=== PATIENT | male | born 1960 | race Two or more races ===

== ENCOUNTER 2022-12-19 08:48 | Outpatient (REF) | payer MEDICAID, SELFPAY ==
[2022-12-19 09:16] LABS: MANUAL DIFF FLAG NO
[2022-12-19 10:10] LABS: Basophils Percent Auto 0.2 % (0-2); Eosinophils Absolute Auto 0.2 X10*3/uL (0.0-0.4); Eosinophils Percent Auto 5.4 % (0-4); Hematocrit 39.1 % (42.0-52.0); Hemoglobin 12.2 g/dl (14.0-18.0); Imm Gran Abs Auto 0.02 X10*3/uL (0.00-0.03); Imm Gran Pct Auto 0.5 % (0.0-0.4); Lymphocytes Absolute Auto 0.5 X10*3/uL (1.2-4.9); Lymphocytes Percent Auto 11.1 % (20-40); Mean Corpuscular HGB Conc 31.2 g/dl (31.0-36.0); Mean Corpuscular Hemoglobin 26.2 pg (27.0-33.0); Mean Corpuscular Volume 83.9 fL (80.0-98.0); Mean Platelet Volume 11.7 fL (9.4-12.4); Monocytes Absolute Auto 0.4 X10*3/uL (0.1-1.2); Monocytes Percent Auto 9.6 % (2-11); Neutrophils Percent Auto 73.2 % (45-73); Platelet Count 117 X10*3/uL (160-400); Red Blood Count 4.66 X10*6/uL (4.60-5.80); Red Cell Distribution Width 14.4 % (11.0-16.0); White Blood Count 4.1 X10*3/uL (4.8-10.8)
[2022-12-19 10:53] LABS: Alanine Aminotransferase 30 U/L (0-40); Aspartate Amino Transferase 40 U/L (5-37); Estimated Glomerular Filt Rate > 60
[2022-12-19 11:48] LABS: CT PCR NOT DETECTED (Not Detect.); NG PCR NOT DETECTED (Not Detect.)
[2022-12-20 06:34] LABS: Syphilis Screen Nonreactive (Nonreactive)
[2022-12-20 14:18] LABS: HIV RNA PCR Qn Copies 1800000 copies/mL (NOT DETECTED); HIV RNA PCR Qn Log Copies 6.26 (NOT DETECTED)
== END 2022-12-19 08:49 | disposition home or self-care (01) ==
LOC: HO.LAB 08:48
PROVIDERS: Visit Provider Internal Medicine Infectious Disease
DX: B20 Human immunodeficiency virus [HIV] disease (principal)
CPT/HCPCS: 0353U; 82565; 84450; 84460; 85025; 86160; 86780; 87536

== ENCOUNTER 2023-02-25 11:10 | Emergency (ER) | payer MEDICAID, SELFPAY ==
--- NOTE | ~2023-02-25 | XR_ITS ---
EXAMINATION: XR chest 2V CLINICAL INFORMATION: Reason for Exam rash, h/o hiv, weakness COMPARISON: No prior chest x-ray available in our system for comparison at the time of this dictation. TECHNIQUE: XR chest 2V Lungs and Christy: Both lungs are clear. Pleura: Normal. Costophrenic angles are sharp. No pneumothorax. Heart: The heart is normal in size. Mediastinum: The mediastinum is within normal limits.. Bones: Skeletal structures included are normal for patient's age. XR/XR chest 2V IMPRESSION: No radiographic evidence of acute cardiopulmonary disease.
[2023-02-25 11:47] VITALS: BP 135/80; PULSE 70; RESP 18; TEMP 36.7; O2SAT 98; BMI 23.8
--- NOTE | 2023-02-25 11:50 | ED_ITS ---
HPI - General Adult General Chief complaint: Urogenital-Male <NED Naik - Last Filed: 02/27/23 07:34> Stated complaint: infection <NED Naik - Last Filed: 02/27/23 07:34> Time Seen by Provider: 02/25/23 14:58 <NED Naik - Last Filed: 02/27/23 07:34> Source: patient <Sheryl Hill NP - Last Filed: 02/25/23 18:47> Mode of arrival: ambulatory <Sheryl Hill NP - Last Filed: 02/25/23 18:47> Limitations: no limitations <Sheryl Hill NP - Last Filed: 02/25/23 18:47> History of Present Illness HPI narrative: 62yo male with a history HIV who has not taken antiviral medication in greater than 8 years who presents to the ER with complaints of itching rash for the last 1 week noted over his entire body. Patient reports for the last 3 weeks he has had decreased oral intake and a 30 lb weight loss. Patient reports he feels weak and tired. He did speak to his infectious disease doctor (brenden) and was prescribed Bactrim on February 05 which he has been taking. He is unsure why he is taking this medication. Patient denies any associated chest pain, difficulty breathing, cough, vomiting, diarrhea, abdominal pain, urinary symptoms, headache, neck pain or neck stiffness. Patient reports he was diagnosed with HIV years ago which was thought to be secondary to IV drug abuse. He is not currently using any IV drugs. He tells me he stopped taking the medication 8 years ago because he was healed by God. He denies any new sexual partners. <Sheryl Hill NP - Last Filed: 02/25/23 18:47> Related Data Home medications: Previous Rx's Medication Instructions Recorded clotrimazole 1 % topical cream 1 appl topical BID 4 weeks #90 02/25/23 grams diphenhydramine HCl 25 mg tablet 25 mg PO TID PRN itching #60 tabs 02/25/23 (Benadryl Allergy) fluconazole 200 mg tablet 200 mg PO DAILY #14 tabs 02/25/23 <NED Naik - Last Filed: 02/27/23 07:34> Allergies/adverse reactions: Allergies Allergy/AdvReac Type Severity Reaction Status Date / Time No Known Allergies Allergy Verified 02/25/23 11:46 <NED Naik - Last Filed: 02/27/23 07:34> Review of Systems Review of Systems: Yes all other systems are reviewed and are negative <Sheryl Hill NP - Last Filed: 02/25/23 18:47> Constitutional: Constitutional: Reports no additional constitutional complaints, Denies body ache(s), Denies chills, Reports fatigue, Denies fever(s), Denies headache(s), Reports weakness and Reports weight loss <Sheryl Hill NP - Last Filed: 02/25/23 18:47> Eyes: Eyes: Reports no additional eye complaints and Denies change in vision <Sheryl Hill NP - Last Filed: 02/25/23 18:47> ENT: Reports system reviewed and no additional complaints, except as documen angela, Denies dizziness, Denies headache(s), Denies nasal congestion, Denies nasal discharge and Denies neck pain <Sheryl Hill NP - Last Filed: 02/25/23 18:47> Cardiovascular: Cardiovascular: Reports no additional cardiovascular complaints, Denies chest pain, Denies leg edema and Denies dyspnea <Sheryl Hill [employer]CHO[employer] PHOTOGRAPH EDITOR - Last Filed: 02/25/23 18:47> Respiratory: Respiratory: Reports no additional respiratory complaints, Denies cough and Denies dyspnea <Sheryl Hill NP - Last Filed: 02/25/23 18:47> Gastrointestinal: Gastrointestinal: Reports no additional gastrointestinal complaints, Denies abdominal pain, Denies diarrhea, Denies nausea and Denies vomiting <Sheryl Hill SCHO[employer] PHOTOGRAPH EDITOR - Last Filed: 02/25/23 18:47> Genitourinary: Genitourinary: Denies urinary incontinence <Sheryl Hill SCHO[employer] PHOTOGRAPH EDITOR - Last Filed: 02/25/23 18:47> Musculoskeletal: Musculoskeletal: Reports no additional musculoskeletal complaints, Denies back pain, Denies arthralgias, Denies joint swelling, Denies neck pain, Denies numbness and Denies tingling <Sheryl Hill NP - Last Filed: 02/25/23 18:47> Integumentary/Breasts: Skin/Breast: Reports system reviewed and no additional complaints, except as docu and Reports rash <Sheryl Hill NP - Last Filed: 02/25/23 18:47> Neurologic: Reports system reviewed and no additional complaints, except as documented, Denies dizziness, Denies headache(s), Denies numbness, Denies tingling and Reports weakness <Sheryl Hill NP - Last Filed: 02/25/23 18:47> Endocrine: Endocrine: Reports fatigue <Sheryl Hill NP - Last Filed: 02/25/23 18:47> FOR[facility]LY [facility] Past Medical History Attestation statement: The following information was validated with the patient. <Sheryl Hill NP - Last Filed: 02/25/23 18:47> Source: old records reviewed and nursing notes reviewed <Sheryl Hill NP - Last Filed: 02/25/23 18:47> Social History Social History: Social History Advance Directives: No Advance Directives Information Provided: Yes <NED Naik - Last Filed: 02/27/23 07:34> Physical Exam ED Vital Signs: Vital Signs - 24 hr 02/25/23 11:47 02/25/23 16:40 Temperature 98.1 F 98.3 F Pulse Rate 70 64 Respiratory Rate 18 20 Blood Pressure 135/80 112/70 Pulse Oximetry 98 98 Oxygen Delivery Method Room Air Room Air BMI result Body Mass Index 23.8 <NED Naik - Last Filed: 02/27/23 07:34> Vital Signs - 24 hr 02/25/23 11:47 02/25/23 16:40 Temperature 98.1 F 98.3 F Pulse Rate 70 64 Respiratory Rate 18 20 Blood Pressure 135/80 112/70 Pulse Oximetry 98 98 Oxygen Delivery Method Room Air Room Air BMI result Body Mass Index 23.8 <Sheryl Hill NP - Last Filed: 02/25/23 18:47> Const Other: Thin-appearing <Sheryl Hill NP - Last Filed: 02/25/23 18:47> General: alert <Sheryl Hill SCHO[employer] PHOTOGRAPH EDITOR - Last Filed: 02/25/23 18:47> Orientation/consciousness: patient oriented x3 <Sheryl Hill SCHO[employer] PHOTOGRAPH EDITOR - Last Filed: 02/25/23 18:47> Limitations: no limitations <Sheryl Hill, SCHOOL PHOTOGRAPH EDITOR - Last Filed: 02/25/23 18:47> HENMT Head: Yes normal to inspection <Sheryl Hill, SCHOOL PHOTOGRAPH EDITOR - Last Filed: 02/25/23 18:47> Ears: hearing grossly normal bilaterally <Sheryl Hill, SCHOOL PHOTOGRAPH EDITOR - Last Filed: 02/25/23 18:47> Eyes General: appearance normal, both eyes and all related structures <Sheryl Hill, SCHOOL PHOTOGRAPH EDITOR - Last Filed: 02/25/23 18:47> Pupils: Equal, round and reactive pupils present <Sheryl Hill SCHO[employer] PHOTOGRAPH EDITOR - Last Filed: 02/25/23 18:47> Neck Neck: Yes normal visual inspection, Yes full ROM, Yes no lymphadenopathy and Yes no meningeal signs <Sheryl Hill, SCHOOL PHOTOGRAPH EDITOR - Last Filed: 02/25/23 18:47> Chest Chest palpation & inspection: normal inspection of the chest <Sheryl Hill SCHO[employer] PHOTOGRAPH EDITOR - Last Filed: 02/25/23 18:47> Resp Effort & Inspection: normal respiratory effort <Sheryl Hill SCHO[employer] PHOTOGRAPH EDITOR - Last Filed: 02/25/23 18:47> Auscultation: clear to auscultation bilaterally <Sheryl Hill SCHOOL PHOTOGRAPH EDITOR - Last Filed: 02/25/23 18:47> Cardio Rate: regular rate <Sheryl Hill SCHOOL PHOTOGRAPH EDITOR - Last Filed: 02/25/23 18:47> Rhythm: regular rhythm <Sheryl Hill SCHOOL PHOTOGRAPH EDITOR - Last Filed: 02/25/23 18:47> Peripheral pulses: Peripheral pulses 2+ throughout <Sheryl Hill SCHO[employer] PHOTOGRAPH EDITOR - Last Filed: 02/25/23 18:47> GI Inspection: Yes normal to inspection <Sheryl Hill SCHO[employer] PHOTOGRAPH EDITOR - Last Filed: 02/25/23 18:47> Palpation (GI): Soft to palpation and nontender <Sheryl Hill NP - Last Filed: 02/25/23 18:47> General: Yes no CVA tenderness <Sheryl Hill NP - Last Filed: 02/25/23 18:47> Back/Spine/Pelvis Back: no CVA tenderness <Sheryl Hill SCHO[employer] PHOTOGRAPH EDITOR - Last Filed: 02/25/23 18:47> Thoracic/Lumbar Spine: thoracic and lumbar spine normal to inspection <Sheryl Hill NP - Last Filed: 02/25/23 18:47> Skin Other: Over the trunk, lower legs, upper arms, genital area there are patch like lesions with a red rim around the circumference. There are areas of excoriation . The hands and feet are spared. There are no oral lesions <Sheryl Hill NP - Last Filed: 02/25/23 18:47> Neuro General: patient oriented x3, moves all extremities and no meningeal signs <Sheryl Hill NP - Last Filed: 02/25/23 18:47> Cranial nerves: Yes Equal, round and reactive pupils present <Sheryl Hill NP - Last Filed: 02/25/23 18:47> Cognition (Neuro): normal cognition <Sheryl Hill NP - Last Filed: 02/25/23 18:47> Gait exam (Neuro): Normal gait present <Sheryl Hill NP - Last Filed: 02/25/23 18:47> Extrem General: Yes normal to inspection, Yes no pedal edema and Yes no calf tenderness <Sheryl Hill NP - Last Filed: 02/25/23 18:47> Course Course Course Narrative: RME: 62 yold male presents to the ED for penile rash, penile discharge, and weight loss. Patient is well appearing. UA, CTNG ordered <NED Naik - Last Filed: 02/27/23 07:34> Reevaluation(s) Reevaluation #1: Reviewed labs which show leukopenia, thrombocytopenia, lymphocytopenia which appears mildly decreased from patient's baseline. Hemoglobin and hematocrit are stable. Patient sodium is 146 and BUN is 33 which is consistent with mild dehydration. He has normal creatinine. His chest x-ray shows no signs of infection. His urine is negative for infection. His COVID and flu testing are negative. Patient received 1 L of IV fluids. -patient with significant weight loss, history of HIV, not on any antivirals with poor CD4 counts in the past now with fungal appearing rash over the last few weeks. Will need further w/u outpatient. I did explain to the patient that I am quite concerned for his current physical state and he does not follow up closely with his Infectious Disease he may become much sicker and . Thankfully he does have an infectious disease doctor any tells me he will call her tomorrow to follow-up. I did discuss this patient with my attending physician Dr. Llanos. We will start the patient on oral fluconazole and give a 2 week supply with recommendations for close follow-up outpatient with Infecti ous Disease. Patient agreeable with plan of care. Recommended return for any worsening signs or symptoms. Patient is comfortable with this. <Sheryl Hill NP - Last Filed: 02/25/23 18:47> Medications Administered Discontinued Medications Generic Name Dose Route Start Last Admin Trade Name Freq PRN Reason Stop Dose Admin Diphenhydramine HCl 12.5 mg 02/25/23 17:29 02/25/23 18:14 Diphenhydramine Hcl 50 Mg/Ml Vial IVPUSH 02/25/23 17:30 12.5 mg ONCE ONE Administration Sodium Chloride 1,000 mls @ 999 mls/hr 02/25/23 16:40 02/25/23 17:01 Ns IV 02/25/23 17:40 999 mls/hr .Q1H1M STA Administration <NED Naik - Last Filed: 02/27/23 07:34> Medications Administered Discontinued Medications Generic Name Dose Route Start Last Admin Trade Name Freq PRN Reason Stop Dose Admin Diphenhydramine HCl 12.5 mg 02/25/23 17:29 02/25/23 18:14 Diphenhydramine Hcl 50 Mg/Ml Vial IVPUSH 02/25/23 17:30 12.5 mg ONCE ONE Administration Sodium Chloride 1,000 mls @ 999 mls/hr 02/25/23 16:40 02/25/23 17:01 Ns IV 02/25/23 17:40 999 mls/hr .Q1H1M STA Administration <Sheryl Hill NP - Last Filed: 02/25/23 18:47> Medical Decision Making Medical Decision Making [facility] Narrative: This is a 62-year-old male with a history of HIV who stopped taking antiviral medications many years ago who presents to the ER with complaints of weakness, poor p.o. intake, 30 lb weight loss in 3 weeks now with an itching diffuse body rash for the last 1 week. Of note, patient was started on Bactrim for unknown reason on February 05. Vitals are stable. Besides rash there is no focal finding on exam. Will obtain labs, chest x-ray, EKG -I did review the patient's labs in his CD4 count from 2019 is 41 <Sheryl Hill NP - Last Filed: 02/25/23 18:47> Differential Diagnosis Differential Diagnoses: The differential diagnosis associated with the presentation includes <Sheryl Hill NP - Last Filed: 02/25/23 18:47> Skin rash not consistent with Martins-Lukasz syndrome or it TEN Low concern for tick-borne illness Low concern for cellulitis appears to be fungal <Sheryl Hill NP - Last Filed: 02/25/23 18:47> Lab Data [facility] Lab Attestation statement: I reviewed the patient's lab results. <Sheryl Hill NP - Last Filed: 02/25/23 18:47> Result Diagrams: 02/25/23 16:04 02/25/23 16:04 <NED Naik - Last Filed: 02/27/23 07:34> Labs: Lab Results 02/25/23 02/25/23 02/25/23 Range/Units 12:21 12:21 16:03 WBC (4.8-10.8) X10*3/uL RBC (4.60-5.80) X10*6/uL Hgb (14.0-18.0) g/dl Hct (42.0-52.0) % MCV (80.0-98.0) fL MCH (27.0-33.0) pg MCHC (31.0-36.0) g/dl RDW (11.0-16.0) % Plt Count (160-400) X10*3/uL MPV (9.4-12.4) fL Immature Gran % (Auto) (0.0-0.4) % Neut % (Auto) (45-73) % Lymph % (Auto) (20-40) % Dixon % (Auto) (2-11) % Eos % (Auto) (0-4) % Baso % (Auto) (0-2) % Lymph # (Auto) (1.2-4.9) X10*3/uL Dixon # (Auto) (0.1-1.2) X10*3/uL Eos # (Auto) (0.0-0.4) X10*3/uL Baso # (Auto) (0.0-0.2) X10*3/uL Abs Immat Gran (auto) (0.00-0.03) X10*3/uL Absolute Neuts (auto) (2.0-8.3) x10*3/uL Absolute Nucleated RBC (0.0-0.012) X10*3/uL Nucleated RBC % (auto) (0.0-0.2) /100WBC PT (10.0-13.1) SEC INR (0.9-1.1) Sodium (135-145) mmol/L Potassium (3.3-5.1) mmol/L Chloride (96-108) mmol/L Carbon Dioxide (22-29) mmol/L Anion Gap (12-20) BUN (9-16) mg/dL Creatinine (0.5-1.4) mg/dL Estim Creat Clear Calc Estimated GFR Random Glucose (60-115) mg/dL Lactic Acid (0.5-2.0) mmol/L Calcium (8.4-10.2) mg/dL Magnesium (1.6-2.6) mg/dL Total Bilirubin (0.0-1.0) mg/dL Direct Bilirubin (0.0-0.5) mg/dL AST (5-37) U/L ALT (0-40) U/L Alkaline Phosphatase (39-117) U/L Total Creatine Kinase (38-174) U/L Total Protein (6.5-8.0) g/dL Albumin (3.5-5.0) g/dL Lipase (8-78) U/L Urine Color Dark Yellow Urine Appearance Clear Urine pH 6.0 (5.0-9.0) Ur Specific [place] >= 1.030 H (1.005-1.025) Urine Protein 30 (1+) H (Neg-Trace) mg/dL Urine Glucose (UA) Negative (Negative) mg/dL Urine Ketones Trace (Negative) mg/dL Urine Blood Negative (Negative) Urine Nitrite Negative (Negative) Ur Leukocyte Esterase Trace H (Negative) Urine RBC 0-2 (0-2) /HPF Urine WBC 0-5 (0-5) /HPF Ur Squamous Epith Cells 0-2 (0-2) /HPF Urine Bacteria None Seen (None Seen) Hyaline Casts 0-2 (0-2) /LPF T.pallidum Ab (EIA) Nonreactive (Nonreactive) Chlam trachomat DNA PCR NOT DETECTED (Not Detect.) Influenza Type A (PCR) (Negative) Influenza Type B (PCR) (Negative) N.gonorrhoeae DNA (PCR) NOT DETECTED (Not Detect.) RSV RNA Qual (PCR) (Negative) SARS-CoV-2 RNA (RT-PCR) (Negative) 02/25/23 02/25/23 02/25/23 Range/Units 16:03 16:04 16:04 WBC 3.2 L (4.8-10.8) X10*3/uL RBC 5.01 (4.60-5.80) X10*6/uL Hgb 13.4 L (14.0-18.0) g/dl Hct 42.3 (42.0-52.0) % MCV 84.4 (80.0-98.0) fL MCH 26.7 L (27.0-33.0) pg MCHC 31.7 (31.0-36.0) g/dl RDW 14.8 (11.0-16.0) % Plt Count 118 L (160-400) X10*3/uL MPV 12.2 (9.4-12.4) fL Immature Gran % (Auto) 0.0 (0.0-0.4) % Neut % (Auto) 58.3 (45-73) % Lymph % (Auto) 19.6 L (20-40) % Dixon % (Auto) 13.4 H (2-11) % Eos % (Auto) 8.4 H (0-4) % Baso % (Auto) 0.3 (0-2) % Lymph # (Auto) 0.6 L (1.2-4.9) X10*3/uL Dixon # (Auto) 0.4 (0.1-1.2) X10*3/uL Eos # (Auto) 0.3 (0.0-0.4) X10*3/uL Baso # (Auto) 0.0 (0.0-0.2) X10*3/uL Abs Immat Gran (auto) 0.00 (0.00-0.03) X10*3/uL Absolute Neuts (auto) 1.9 L (2.0-8.3) x10*3/uL Absolute Nucleated RBC 0.000 (0.0-0.012) X10*3/uL Nucleated RBC % (auto) 0.0 (0.0-0.2) /100WBC PT 11.5 (10.0-13.1) SEC INR 1.0 (0.9-1.1) Sodium 146 H (135-145) mmol/L Potassium 4.4 (3.3-5.1) mmol/L Chloride 113 H (96-108) mmol/L Carbon Dioxide 27 (22-29) mmol/L Anion Gap 10 L (12-20) BUN 33 H (9-16) mg/dL Creatinine 0.88 (0.5-1.4) mg/dL Estim Creat Clear Calc 68.9 Estimated GFR > 60 Random Glucose 93 (60-115) mg/dL Lactic Acid (0.5-2.0) mmol/L Calcium 9.6 (8.4-10.2) mg/dL Magnesium 2.0 (1.6-2.6) mg/dL Total Bilirubin 0.7 (0.0-1.0) mg/dL Direct Bilirubin 0.2 (0.0-0.5) mg/dL AST 69 H (5-37) U/L ALT 51 H (0-40) U/L Alkaline Phosphatase 136 H (39-117) U/L Total Creatine Kinase 87 (38-174) U/L Total Protein 9.1 H (6.5-8.0) g/dL Albumin 3.9 (3.5-5.0) g/dL Lipase 69 (8-78) U/L Urine Color Urine Appearance Urine pH (5.0-9.0) Ur Specific [place] (1.005-1.025) Urine Protein (Neg-Trace) mg/dL Urine Glucose (UA) (Negative) mg/dL Urine Ketones (Negative) mg/dL Urine Blood (Negative) Urine Nitrite (Negative) Ur Leukocyte Esterase (Negative) Urine RBC (0-2) /HPF Urine WBC (0-5) /HPF Ur Squamous Epith Cells (0-2) /HPF Urine Bacteria (None Seen) Hyaline Casts (0-2) /LPF T.pallidum Ab (EIA) (Nonreactive) Chlam trachomat DNA PCR (Not Detect.) Influenza Type A (PCR) (Negative) Influenza Type B (PCR) (Negative) N.gonorrhoeae DNA (PCR) (Not Detect.) RSV RNA Qual (PCR) (Negative) SARS-CoV-2 RNA (RT-PCR) (Negative) 02/25/23 02/25/23 Range/Units 16:04 16:04 WBC (4.8-10.8) X10*3/uL RBC (4.60-5.80) X10*6/uL Hgb (14.0-18.0) g/dl Hct (42.0-52.0) % MCV (80.0-98.0) fL MCH (27.0-33.0) pg MCHC (31.0-36.0) g/dl RDW (11.0-16.0) % Plt Count (160-400) X10*3/uL MPV (9.4-12.4) fL Immature Gran % (Auto) (0.0-0.4) % Neut % (Auto) (45-73) % Lymph % (Auto) (20-40) % Dixon % (Auto) (2-11) % Eos % (Auto) (0-4) % Baso % (Auto) (0-2) % Lymph # (Auto) (1.2-4.9) X10*3/uL Dixon # (Auto) (0.1-1.2) X10*3/uL Eos # (Auto) (0.0-0.4) X10*3/uL Baso # (Auto) (0.0-0.2) X10*3/uL Abs Immat Gran (auto) (0.00-0.03) X10*3/uL Absolute Neuts (auto) (2.0-8.3) x10*3/uL Absolute Nucleated RBC (0.0-0.012) X10*3/uL Nucleated RBC % (auto) (0.0-0.2) /100WBC PT (10.0-13.1) SEC INR (0.9-1.1) Sodium (135-145) mmol/L Potassium (3.3-5.1) mmol/L Chloride (96-108) mmol/L Carbon Dioxide (22-29) mmol/L Anion Gap (12-20) BUN (9-16) mg/dL Creatinine (0.5-1.4) mg/dL Estim Creat Clear Calc Estimated GFR Random Glucose (60-115) mg/dL Lactic Acid 1.5 (0.5-2.0) mmol/L Calcium (8.4-10.2) mg/dL Magnesium (1.6-2.6) mg/dL Total Bilirubin (0.0-1.0) mg/dL Direct Bilirubin (0.0-0.5) mg/dL AST (5-37) U/L ALT (0-40) U/L Alkaline Phosphatase (39-117) U/L Total Creatine Kinase (38-174) U/L Total Protein (6.5-8.0) g/dL Albumin (3.5-5.0) g/dL Lipase (8-78) U/L Urine Color Urine Appearance Urine pH (5.0-9.0) Ur Specific [place] (1.005-1.025) Urine Protein (Neg-Trace) mg/dL Urine Glucose (UA) (Negative) mg/dL Urine Ketones (Negative) mg/dL Urine Blood (Negative) Urine Nitrite (Negative) Ur Leukocyte Esterase (Negative) Urine RBC (0-2) /HPF Urine WBC (0-5) /HPF Ur Squamous Epith Cells (0-2) /HPF Urine Bacteria (None Seen) Hyaline Casts (0-2) /LPF T.pallidum Ab (EIA) (Nonreactive) Chlam trachomat DNA PCR (Not Detect.) Influenza Type A (PCR) NEGATIVE (Negative) Influenza Type B (PCR) NEGATIVE (Negative) N.gonorrhoeae DNA (PCR) (Not Detect.) RSV RNA Qual (PCR) NEGATIVE (Negative) SARS-CoV-2 RNA (RT-PCR) NEGATIVE (Negative) <NED Naik - Last Filed: 02/27/23 07:34> Lab Results 02/25/23 02/25/23 02/25/23 Range/Units 12:21 12:21 16:03 WBC (4.8-10.8) X10*3/uL RBC (4.60-5.80) X10*6/uL Hgb (14.0-18.0) g/dl Hct (42.0-52.0) % MCV (80.0-98.0) fL MCH (27.0-33.0) pg MCHC (31.0-36.0) g/dl RDW (11.0-16.0) % Plt Count (160-400) X10*3/uL MPV (9.4-12.4) fL Immature Gran % (Auto) (0.0-0.4) % Neut % (Auto) (45-73) % Lymph % (Auto) (20-40) % Dixon % (Auto) (2-11) % Eos % (Auto) (0-4) % Baso % (Auto) (0-2) % Lymph # (Auto) (1.2-4.9) X10*3/uL [place] # (Auto) (0.1-1.2) X10*3/uL Eos # (Auto) (0.0-0.4) X10*3/uL Baso # (Auto) (0.0-0.2) X10*3/uL Abs Immat Gran (auto) (0.00-0.03) X10*3/uL Absolute Neuts (auto) (2.0-8.3) x10*3/uL Absolute Nucleated RBC (0.0-0.012) X10*3/uL Nucleated RBC % (auto) (0.0-0.2) /100WBC PT (10.0-13.1) SEC INR (0.9-1.1) Sodium (135-145) mmol/L Potassium (3.3-5.1) mmol/L Chloride (96-108) mmol/L Carbon Dioxide (22-29) mmol/L Anion Gap (12-20) BUN (9-16) mg/dL Creatinine (0.5-1.4) mg/dL Estim Creat Clear Calc Estimated GFR Random Glucose (60-115) mg/dL Lactic Acid (0.5-2.0) mmol/L Calcium (8.4-10.2) mg/dL Magnesium (1.6-2.6) mg/dL Total Bilirubin (0.0-1.0) mg/dL Direct Bilirubin (0.0-0.5) mg/dL AST (5-37) U/L ALT (0-40) U/L Alkaline Phosphatase (39-117) U/L Total Creatine Kinase (38-174) U/L Total Protein (6.5-8.0) g/dL Albumin (3.5-5.0) g/dL Lipase (8-78) U/L Urine Color Dark Yellow Urine Appearance Clear Urine pH 6.0 (5.0-9.0) Ur Specific [place] >= 1.030 H (1.005-1.025) Urine Protein 30 (1+) H (Neg-Trace) mg/dL Urine Glucose (UA) Negative (Negative) mg/dL Urine Ketones Trace (Negative) mg/dL Urine Blood Negative (Negative) Urine Nitrite Negative (Negative) Ur Leukocyte Esterase Trace H (Negative) Urine RBC 0-2 (0-2) /HPF Urine WBC 0-5 (0-5) /HPF Ur Squamous Epith Cells 0-2 (0-2) /HPF Urine Bacteria None Seen (None Seen) Hyaline Casts 0-2 (0-2) /LPF T.pallidum Ab (EIA) Nonreactive (Nonreactive) Chlam trachomat DNA PCR NOT DETECTED (Not Detect.) Influenza Type A (PCR) (Negative) Influenza Type B (PCR) (Negative) N.gonorrhoeae DNA (PCR) NOT DETECTED (Not Detect.) RSV RNA Qual (PCR) (Negative) SARS-CoV-2 RNA (RT-PCR) (Negative) 02/25/23 02/25/23 02/25/23 Range/Units 16:03 16:04 16:04 WBC 3.2 L (4.8-10.8) X10*3/uL RBC 5.01 (4.60-5.80) X10*6/uL Hgb 13.4 L (14.0-18.0) g/dl Hct 42.3 (42.0-52.0) % MCV 84.4 (80.0-98.0) fL MCH 26.7 L (27.0-33.0) pg MCHC 31.7 (31.0-36.0) g/dl RDW 14.8 (11.0-16.0) % Plt Count 118 L (160-400) X10*3/uL MPV 12.2 (9.4-12.4) fL Immature Gran % (Auto) 0.0 (0.0-0.4) % Neut % (Auto) 58.3 (45-73) % Lymph % (Auto) 19.6 L (20-40) % Dixon % (Auto) 13.4 H (2-11) % Eos % (Auto) 8.4 H (0-4) % Baso % (Auto) 0.3 (0-2) % Lymph # (Auto) 0.6 L (1.2-4.9) X10*3/uL [place] # (Auto) 0.4 (0.1-1.2) X10*3/uL Eos # (Auto) 0.3 (0.0-0.4) X10*3/uL Baso # (Auto) 0.0 (0.0-0.2) X10*3/uL Abs Immat Gran (auto) 0.00 (0.00-0.03) X10*3/uL Absolute Neuts (auto) 1.9 L (2.0-8.3) x10*3/uL Absolute Nucleated RBC 0.000 (0.0-0.012) X10*3/uL Nucleated RBC % (auto) 0.0 (0.0-0.2) /100WBC PT 11.5 (10.0-13.1) SEC INR 1.0 (0.9-1.1) Sodium 146 H (135-145) mmol/L Potassium 4.4 (3.3-5.1) mmol/L Chloride 113 H (96-108) mmol/L Carbon Dioxide 27 (22-29) mmol/L Anion Gap 10 L (12-20) BUN 33 H (9-16) mg/dL Creatinine 0.88 (0.5-1.4) mg/dL Estim Creat Clear Calc 68.9 Estimated GFR > 60 Random Glucose 93 (60-115) mg/dL Lactic Acid (0.5-2.0) mmol/L Calcium 9.6 (8.4-10.2) mg/dL Magnesium 2.0 (1.6-2.6) mg/dL Total Bilirubin 0.7 (0.0-1.0) mg/dL Direct Bilirubin 0.2 (0.0-0.5) mg/dL AST 69 H (5-37) U/L ALT 51 H (0-40) U/L Alkaline Phosphatase 136 H (39-117) U/L Total Creatine Kinase 87 (38-174) U/L Total Protein 9.1 H (6.5-8.0) g/dL Albumin 3.9 (3.5-5.0) g/dL Lipase 69 (8-78) U/L Urine Color Urine Appearance Urine pH (5.0-9.0) Ur Specific [place] (1.005-1.025) Urine Protein (Neg-Trace) mg/dL Urine Glucose (UA) (Negative) mg/dL Urine Ketones (Negative) mg/dL Urine Blood (Negative) Urine Nitrite (Negative) Ur Leukocyte Esterase (Negative) Urine RBC (0-2) /HPF Urine WBC (0-5) /HPF Ur Squamous Epith Cells (0-2) /HPF Urine Bacteria (None Seen) Hyaline Casts (0-2) /LPF T.pallidum Ab (EIA) (Nonreactive) Chlam trachomat DNA PCR (Not Detect.) Influenza Type A (PCR) (Negative) Influenza Type B (PCR) (Negative) N.gonorrhoeae DNA (PCR) (Not Detect.) RSV RNA Qual (PCR) (Negative) SARS-CoV-2 RNA (RT-PCR) (Negative) 02/25/23 02/25/23 Range/Units 16:04 16:04 WBC (4.8-10.8) X10*3/uL RBC (4.60-5.80) X10*6/uL Hgb (14.0-18.0) g/dl Hct (42.0-52.0) % MCV (80.0-98.0) fL MCH (27.0-33.0) pg MCHC (31.0-36.0) g/dl RDW (11.0-16.0) % Plt Count (160-400) X10*3/uL MPV (9.4-12.4) fL Immature Gran % (Auto) (0.0-0.4) % Neut % (Auto) (45-73) % Lymph % (Auto) (20-40) % [place] % (Auto) (2-11) % Eos % (Auto) (0-4) % Baso % (Auto) (0-2) % Lymph # (Auto) (1.2-4.9) X10*3/uL [place] # (Auto) (0.1-1.2) X10*3/uL Eos # (Auto) (0.0-0.4) X10*3/uL Baso # (Auto) (0.0-0.2) X10*3/uL Abs Immat Gran (auto) (0.00-0.03) X10*3/uL Absolute Neuts (auto) (2.0-8.3) x10*3/uL Absolute Nucleated RBC (0.0-0.012) X10*3/uL Nucleated RBC % (auto) (0.0-0.2) /100WBC PT (10.0-13.1) SEC INR (0.9-1.1) Sodium (135-145) mmol/L Potassium (3.3-5.1) mmol/L Chloride (96-108) mmol/L Carbon Dioxide (22-29) mmol/L Anion Gap (12-20) BUN (9-16) mg/dL Creatinine (0.5-1.4) mg/dL Estim Creat Clear Calc Estimated GFR Random Glucose (60-115) mg/dL Lactic Acid 1.5 (0.5-2.0) mmol/L Calcium (8.4-10.2) mg/dL Magnesium (1.6-2.6) mg/dL Total Bilirubin (0.0-1.0) mg/dL Direct Bilirubin (0.0-0.5) mg/dL AST (5-37) U/L ALT (0-40) U/L Alkaline Phosphatase (39-117) U/L Total Creatine Kinase (38-174) U/L Total Protein (6.5-8.0) g/dL Albumin (3.5-5.0) g/dL Lipase (8-78) U/L Urine Color Urine Appearance Urine pH (5.0-9.0) Ur Specific [place] (1.005-1.025) Urine Protein (Neg-Trace) mg/dL Urine Glucose (UA) (Negative) mg/dL Urine Ketones (Negative) mg/dL Urine Blood (Negative) Urine Nitrite (Negative) Ur Leukocyte Esterase (Negative) Urine RBC (0-2) /HPF Urine WBC (0-5) /HPF Ur Squamous Epith Cells (0-2) /HPF Urine Bacteria (None Seen) Hyaline Casts (0-2) /LPF T.pallidum Ab (EIA) (Nonreactive) Chlam trachomat DNA PCR (Not Detect.) Influenza Type A (PCR) NEGATIVE (Negative) Influenza Type B (PCR) NEGATIVE (Negative) N.gonorrhoeae DNA (PCR) (Not Detect.) RSV RNA Qual (PCR) NEGATIVE (Negative) SARS-CoV-2 RNA (RT-PCR) NEGATIVE (Negative) <Sheryl Hill NP - Last Filed: 02/25/23 18:47> Independent Interpretation I performed an independent interpretation of an: Plain X-Ray <Sheryl Hill NP - Last Filed: 02/25/23 18:47> Interpretation: I independetely reviewed the x-ray and agree with radiologist's report <Sheryl Hill NP - Last Filed: 02/25/23 18:47> Radiology Impression Discussion of test interpretation with radiology: I have reviewed the radiologist's reading. <Sheryl Hill NP - Last Filed: 02/25/23 18:47> Radiologist Impression: [address] [address] XRay Report Signed Patient: Luis Bond MR#: [id number] : 1960 Acct:[id number] Age/Sex: 62 / M ADM Date: 02/25/23 Loc: .ED Attending Dr: Ordering Physician: Sheryl Waldron NP Date of Service: 02/25/23 Procedure(s): XR chest 2V Accession Number(s): [id number] cc: Sheryl Waldron NP~ EXAMINATION: XR chest 2V CLINICAL INFORMATION: Reason for Exam rash, h/o hiv, weakness COMPARISON: No prior chest x-ray available in our system for comparison at the time of this dictation.? TECHNIQUE: XR chest 2V Lungs and Christy: Both lungs are clear. Pleura: Normal. Costophrenic angles are sharp. No pneumothorax. Heart: The heart is normal in size. Mediastinum: The mediastinum is within normal limits.. Bones: Skeletal structures included are normal for patient's age. XR/XR chest 2V IMPRESSION: No radiographic evidence of acute cardiopulmonary disease. <Sheryl Hill NP - Last Filed: 02/25/23 18:47> Discharge Plan Discharge Clinical Impression: Rash, Acute dehydration, Unexplained weight loss, Fungal infection <NED Naik - Last Filed: 02/27/23 07:34> Patient Disposition: Home, Self-Care <NED Naik - Last Filed: 02/27/23 07:34> Instructions: Dehydration (ED), Skin Yeast Infection (ED) <NED Naik - Last Filed: 02/27/23 07:34> Additional Instructions: Your immune system is not doing well. This has caused due to developed a fungal rash. We are treating you for this fungal infection with oral and topical medication Use the Benadryl as needed for itching You were dehydrated. You need to increase fluids at home You need to call your infectious disease doctor tomorrow to discuss your HIV and being started on antiviral medications. This is very important. If you do not do this you may <NED Naik - Last Filed: 02/27/23 07:34> Prescriptions: New fluconazole 200 mg tablet 200 mg PO DAILY Qty: 14 0RF diphenhydramine HCl [Benadryl Allergy] 25 mg tablet 25 mg PO TID PRN (Reason: itching) Qty: 60 0RF clotrimazole 1 % cream 1 appl topical BID 28 Days Qty: 90 0RF <NED Naik - Last Filed: 02/27/23 07:34> Referrals: Fay Mead MD [Physician] - 1 week <NED Naik - Last Filed: 02/27/23 07:34> Interventions: ED Discharge Assessment Last Done: 02/25/23 19:18 <NED Naik - Last Filed: 02/27/23 07:34> Discharge Date/Time: 02/25/23 19:19 <NED Naik - Last Filed: 02/27/23 07:34>
[2023-02-25 12:32] LABS: Appearance Urine Clear; Color Urine Dark Yellow; Glucose Urine UA Negative (Negative); Leukocyte Esterase Urine Trace (Negative); Nitrite Urine Negative (Negative); Specific Gravity - Urine >= 1.030 (1.005-1.025); UMIC TRIGGER UACC YES; Urine Blood Negative (Negative); Urine Ketones Trace mg/dL (Negative); Urine Protein 30 (1+) mg/dL (Neg-Trace)
[2023-02-25 12:37] LABS: Bacteria Urine None Seen (None Seen); Hyaline Casts Urine 0-2 /LPF (0-2); RBC Urine 0-2 /HPF (0-2); Squamous Epithelial Cell Urine 0-2 /HPF (0-2); WBC Urine 0-5 /HPF (0-5)
[2023-02-25 14:03] LABS: CT PCR NOT DETECTED (Not Detect.); NG PCR NOT DETECTED (Not Detect.)
[2023-02-25 16:09] LABS: MANUAL DIFF FLAG NO
[2023-02-25 16:18] LABS: Basophils Percent Auto 0.3 % (0-2); Eosinophils Absolute Auto 0.3 X10*3/uL (0.0-0.4); Eosinophils Percent Auto 8.4 % (0-4); Hematocrit 42.3 % (42.0-52.0); Hemoglobin 13.4 g/dl (14.0-18.0); Lymphocytes Absolute Auto 0.6 X10*3/uL (1.2-4.9); Lymphocytes Percent Auto 19.6 % (20-40); Mean Corpuscular HGB Conc 31.7 g/dl (31.0-36.0); Mean Corpuscular Hemoglobin 26.7 pg (27.0-33.0); Mean Corpuscular Volume 84.4 fL (80.0-98.0); Mean Platelet Volume 12.2 fL (9.4-12.4); Monocytes Absolute Auto 0.4 X10*3/uL (0.1-1.2); Monocytes Percent Auto 13.4 % (2-11); Neutrophils Absolute Auto 1.9 x10*3/uL (2.0-8.3); Neutrophils Percent Auto 58.3 % (45-73); Platelet Count 118 X10*3/uL (160-400); Red Blood Count 5.01 X10*6/uL (4.60-5.80); Red Cell Distribution Width 14.8 % (11.0-16.0); White Blood Count 3.2 X10*3/uL (4.8-10.8)
[2023-02-25 16:20] LABS: Lactic Acid 1.5 mmol/L (0.5-2.0)
[2023-02-25 16:23] LABS: Prothrombin Time 11.5 SEC (10.0-13.1)
[2023-02-25 16:35] LABS: Alanine Aminotransferase 51 U/L (0-40); Albumin Level 3.9 g/dL (3.5-5.0); Alkaline Phosphatase 136 U/L (39-117); Anion Gap 10 (12-20); Aspartate Amino Transferase 69 U/L (5-37); Bilirubin Direct 0.2 mg/dL (0.0-0.5); Bilirubin Total 0.7 mg/dL (0.0-1.0); Blood Urea Nitrogen 33 mg/dL (9-16); Calcium 9.6 mg/dL (8.4-10.2); Carbon Dioxide 27 mmol/L (22-29); Chloride 113 mmol/L (96-108); Creatinine Clr Calc Pharmacy 68.9; Estimated Glomerular Filt Rate > 60; Glucose Random 93 mg/dL (60-115); Lipase 69 U/L (8-78); Potassium 4.4 mmol/L (3.3-5.1); Sodium 146 mmol/L (135-145); Total Protein 9.1 g/dL (6.5-8.0)
[2023-02-25 16:40] VITALS: BP 112/70; PULSE 64; RESP 20; TEMP 36.8; O2SAT 98
[2023-02-25 16:49] LABS: Influenza A PCR NEGATIVE (Negative); Influenza B PCR NEGATIVE (Negative); Resp Syncy Virus RNA Qual PCR NEGATIVE (Negative); SARS COV2 PCR INHOUSE NEGATIVE (Negative)
[2023-02-25] MEDS: 0.9 % Sodium Chloride 1,000 ML 999 ML IV (17:01)
[2023-02-25] MEDS: diphenhydrAMINE HCL 50 MG/ML VIAL 12.5 MG IVPUSH (18:14)
[2023-02-26 09:10] LABS: Syphilis Screen Nonreactive (Nonreactive)
[2023-03-01 18:47] LABS: HIV RNA PCR Qn Log Copies 6.73 (NOT DETECTED)
== END 2023-02-25 19:19 | disposition home or self-care (01) ==
PROVIDERS: Nurse Practitioner Family; Physician Assistant; Emergency Provider Emergency Medicine
DX: E86.0 Dehydration (principal); R21 Rash and other nonspecific skin eruption; R63.4 Abnormal weight loss; B49 Unspecified mycosis; Z20.822 Contact with and (suspected) exposure to COVID-19; Z20.828 Contact with and (suspected) exposure to other viral communicable diseases; Z21 Asymptomatic human immunodeficiency virus [HIV] infection status; Z79.899 Other long term (current) drug therapy
CPT/HCPCS: 0241U; 0353U; 36415; 71046; 80048; 80076; 81001; 82550; 83605; 83690; 83735; 85025; 85610; 86780; 87040; 87536; 96361; 96374; 99284; J1200

== ENCOUNTER 2023-03-28 09:45 | Outpatient (REF) | payer MEDICAID, SELFPAY ==
[2023-03-28 11:13] LABS: Alanine Aminotransferase 24 U/L (0-40); Aspartate Amino Transferase 27 U/L (5-37); Estimated Glomerular Filt Rate > 60
[2023-03-28 11:30] LABS: Syphilis Screen Nonreactive (Nonreactive)
[2023-03-28 11:37] LABS: HBsAGNum1 0.33 S/CO (0.00-0.99); Hepatitis B Surface Antigen Negative (Negative)
[2023-03-28 12:39] LABS: CT PCR NOT DETECTED (Not Detect.); NG PCR NOT DETECTED (Not Detect.)
[2023-03-30 12:52] LABS: Absolute CD3 Count 669 cells/uL (840-3060); Absolute CD4 Count 74 cells/uL (490-1740); Absolute CD8 Count 576 cells/uL (180-1170); Absolute Lymphocytes 819 cells/uL (850-3900); CD4 CD8 Ratio 0.13 (0.86-5.00); Percent CD3 Cells 82 % (57-85); Percent CD4 Cells 9 % (30-61); Percent CD8 Cells 70 % (12-42)
[2023-03-30 14:58] LABS: HCV Log PCR <1.18 NOT DETECTED Log IU/mL (NOT DETECTED); HepC Viral Load <15 NOT DETECTED IU/mL (NOT DETECTED)
[2023-03-31 12:27] LABS: HIV RNA PCR Qn Copies 337 copies/mL (NOT DETECTED); HIV RNA PCR Qn Log Copies 2.53 (NOT DETECTED)
== END 2023-03-28 09:46 | disposition home or self-care (01) ==
LOC: HO.LAB 09:45
PROVIDERS: Visit Provider Internal Medicine Infectious Disease
DX: B20 Human immunodeficiency virus [HIV] disease (principal)
CPT/HCPCS: 0353U; 82565; 84450; 84460; 86359; 86360; 86780; 87340; 87522; 87536

== ENCOUNTER 2023-05-16 09:12 | Outpatient (REF) | payer MEDICAID, SELFPAY ==
[2023-05-16 09:37] LABS: MANUAL DIFF FLAG NO
[2023-05-16 10:52] LABS: Basophils Percent Auto 0.6 % (0-2); Eosinophils Absolute Auto 0.2 X10*3/uL (0.0-0.4); Eosinophils Percent Auto 3.7 % (0-4); Hemoglobin 14.2 g/dl (14.0-18.0); Imm Gran Abs Auto 0.02 X10*3/uL (0.00-0.03); Imm Gran Pct Auto 0.4 % (0.0-0.4); Lymphocytes Absolute Auto 1.4 X10*3/uL (1.2-4.9); Lymphocytes Percent Auto 27.6 % (20-40); Mean Corpuscular HGB Conc 31.6 g/dl (31.0-36.0); Mean Corpuscular Hemoglobin 27.7 pg (27.0-33.0); Mean Corpuscular Volume 87.7 fL (80.0-98.0); Mean Platelet Volume 10.3 fL (9.4-12.4); Monocytes Absolute Auto 0.5 X10*3/uL (0.1-1.2); Monocytes Percent Auto 9.4 % (2-11); Neutrophils Absolute Auto 2.9 x10*3/uL (2.0-8.3); Neutrophils Percent Auto 58.3 % (45-73); Platelet Count 180 X10*3/uL (160-400); Red Blood Count 5.13 X10*6/uL (4.60-5.80); Red Cell Distribution Width 13.8 % (11.0-16.0); White Blood Count 4.9 X10*3/uL (4.8-10.8)
[2023-05-16 10:55] LABS: Appearance Urine Clear; Color Urine Dark Yellow; Glucose Urine UA Negative (Negative); Leukocyte Esterase Urine Negative (Negative); Nitrite Urine Negative (Negative); Urine Blood Negative (Negative); Urine Ketones Negative (Negative); Urine Protein Negative (Neg-Trace)
[2023-05-16 11:01] LABS: Bacteria Urine None Seen (None Seen); Hyaline Casts Urine 0-2 /LPF (0-2); RBC Urine 0-2 /HPF (0-2); Squamous Epithelial Cell Urine 0-2 /HPF (0-2); WBC Urine 0-5 /HPF (0-5)
[2023-05-16 11:29] LABS: Alanine Aminotransferase 19 U/L (0-40); Aspartate Amino Transferase 20 U/L (5-37); Estimated Glomerular Filt Rate > 60
[2023-05-16 11:54] LABS: Syphilis Screen Nonreactive (Nonreactive)
[2023-05-16 12:39] LABS: CT PCR NOT DETECTED (Not Detect.); NG PCR NOT DETECTED (Not Detect.)
[2023-05-18 15:18] LABS: HIV RNA PCR Qn Copies 81 copies/mL (NOT DETECTED); HIV RNA PCR Qn Log Copies 1.91 (NOT DETECTED)
[2023-05-19 09:33] LABS: Absolute CD3 Count 1064 cells/uL (840-3060); Absolute CD4 Count 104 cells/uL (490-1740); Absolute CD8 Count 946 cells/uL (180-1170); Absolute Lymphocytes 1196 cells/uL (850-3900); CD4 CD8 Ratio 0.11 (0.86-5.00); Percent CD3 Cells 89 % (57-85); Percent CD4 Cells 9 % (30-61); Percent CD8 Cells 79 % (12-42)
[2023-05-19 13:43] LABS: HCV Log PCR <1.18 NOT DETECTED Log IU/mL (NOT DETECTED); HepC Viral Load <15 NOT DETECTED IU/mL (NOT DETECTED)
== END 2023-05-16 09:13 | disposition home or self-care (01) ==
LOC: HO.LAB 09:12
PROVIDERS: Visit Provider Internal Medicine Infectious Disease
DX: B20 Human immunodeficiency virus [HIV] disease (principal)
CPT/HCPCS: 0353U; 81001; 82565; 84450; 84460; 85025; 86359; 86360; 86780; 87522; 87536

== ENCOUNTER 2023-08-15 07:55 | Outpatient (REF) | payer MEDICAID, SELFPAY ==
[2023-08-15 08:14] LABS: MANUAL DIFF FLAG NO
[2023-08-15 08:18] LABS: Basophils Percent Auto 0.8 % (0-2); Eosinophils Absolute Auto 0.1 X10*3/uL (0.0-0.4); Eosinophils Percent Auto 2.3 % (0-4); Hematocrit 45.9 % (42.0-52.0); Hemoglobin 14.8 g/dl (14.0-18.0); Imm Gran Abs Auto 0.02 X10*3/uL (0.00-0.03); Imm Gran Pct Auto 0.4 % (0.0-0.4); Lymphocytes Absolute Auto 1.5 X10*3/uL (1.2-4.9); Lymphocytes Percent Auto 29.2 % (20-40); Mean Corpuscular HGB Conc 32.2 g/dl (31.0-36.0); Mean Corpuscular Hemoglobin 28.1 pg (27.0-33.0); Mean Corpuscular Volume 87.3 fL (80.0-98.0); Mean Platelet Volume 9.3 fL (9.4-12.4); Monocytes Absolute Auto 0.5 X10*3/uL (0.1-1.2); Monocytes Percent Auto 10.3 % (2-11); Neutrophils Absolute Auto 2.9 x10*3/uL (2.0-8.3); Platelet Count 171 X10*3/uL (160-400); Red Blood Count 5.26 X10*6/uL (4.60-5.80); Red Cell Distribution Width 13.6 % (11.0-16.0); White Blood Count 5.1 X10*3/uL (4.8-10.8)
[2023-08-15 08:42] LABS: Alanine Aminotransferase 22 U/L (0-40); Anion Gap 14 (12-20); Aspartate Amino Transferase 26 U/L (5-37); Carbon Dioxide 23 mmol/L (22-29); Chloride 107 mmol/L (96-108); Estimated Glomerular Filt Rate > 60; Potassium 4.7 mmol/L (3.3-5.1); Sodium 139 mmol/L (135-145)
[2023-08-15 09:02] LABS: Syphilis Screen Nonreactive (Nonreactive)
[2023-08-15 09:03] LABS: HBsAGNum1 0.34 S/CO (0.00-0.99); Hepatitis B Surface Antigen Negative (Negative); ~HepC Num1 2.22 S/CO (0.00-0.79); ~Hepatitis C Antibody Reactive (Nonreactive)
[2023-08-15 14:11] LABS: CT PCR NOT DETECTED (Not Detect.); NG PCR NOT DETECTED (Not Detect.)
[2023-08-16 11:38] LABS: Absolute CD3 Count 1414 cells/uL (840-3060); Absolute CD4 Count 139 cells/uL (490-1740); Absolute CD8 Count 1258 cells/uL (180-1170); Absolute Lymphocytes 1629 cells/uL (850-3900); CD4 CD8 Ratio 0.11 (0.86-5.00); Percent CD3 Cells 87 % (57-85); Percent CD4 Cells 9 % (30-61); Percent CD8 Cells 77 % (12-42)
[2023-08-17 18:18] LABS: HIV RNA PCR Qn Copies 50 copies/mL (NOT DETECTED)
== END 2023-08-15 07:56 | disposition home or self-care (01) ==
LOC: HO.LAB 07:55
PROVIDERS: Visit Provider Internal Medicine Infectious Disease
DX: B20 Human immunodeficiency virus [HIV] disease (principal)
CPT/HCPCS: 0353U; 80051; 82565; 84450; 84460; 85025; 86359; 86360; 86780; 86803; 87340; 87536

== ENCOUNTER 2023-09-05 09:37 | Emergency (ER) | payer MEDICAID, SELFPAY ==
--- NOTE | ~2023-09-05 | XR_ITS ---
EXAMINATION: XR CHEST CLINICAL INFORMATION: Right-sided pain COMPARISON: Previous chest x-ray most recent January 2023 TECHNIQUE: 2 views of the chest were obtained. FINDINGS: The cardiac and mediastinal contours are normal. There is atelectasis or small infiltrate at the right lung base and adjacent to the right minor fissure. Segmental atelectasis at the left lung base. No pleural effusion. No pneumothorax. Degenerative changes of the spine. XR/XR chest 2V IMPRESSION: Atelectasis or small infiltrate at the right lung base
[2023-09-05 10:59] VITALS: BP 137/60; PULSE 58; RESP 18; TEMP 36.5; O2SAT 100; BMI 26.7
--- NOTE | 2023-09-05 11:05 | ECG_ITS ---
Test Reason : cp Blood Pressure : / mmHG Vent. Rate : 052 BPM Atrial Rate : 052 BPM P-R Int : 148 ms QRS Dur : 092 ms QT Int : 406 ms P-R-T Axes : 052 -16 014 degrees QTc Int : 377 ms Sinus bradycardia Left anterior fascicular block Intra-ventricular conduction delay Abnormal ECG When compared with ECG of 01-SEP-2005 15:32, QT has shortened Referred By: Generic ED Physician Electronically Signed By:OCTAVIA DICK MD
--- NOTE | 2023-09-05 13:41 | ED_ITS ---
HPI - Chest Pain General Chief Complaint: Chest Pain Stated Complaint: R side pain Time Seen by Provider: 09/05/23 12:33 History of Present Illness HPI narrative: patient complains of cough and right-sided rib pain which began yesterday, pain is worse with deep breath and certain movements, denies fever denies shortness of breath No sore throat no nausea vomiting or diarrhea no dysuria no calf pain no leg pain no leg swelling Related Data Previous Rx's Medication Instructions Recorded clotrimazole 1 % topical cream 1 appl topical BID 4 weeks #90 02/25/23 grams diphenhydramine HCl 25 mg tablet 25 mg PO TID PRN itching #60 tabs 02/25/23 (Benadryl Allergy) fluconazole 200 mg tablet 200 mg PO DAILY #14 tabs 02/25/23 amoxicillin 875 mg-potassium 1 tab PO BID #14 tabs 09/05/23 clavulanate 125 mg tablet doxycycline hyclate 100 mg capsule 100 mg PO BID 7 days #14 caps 09/05/23 Allergies Allergy/AdvReac Type Severity Reaction Status Date / Time No Known Allergies Allergy Verified 09/05/23 10:59 [facility] Past Medical History Source: nursing notes reviewed Social History Social History Advance Directives: No Advance Directives Information Provided: No Physical Exam 2 Vital Signs: Vital Signs: Last Vital Signs Temp 98.2 F 09/05/23 14:00 Pulse 54 09/05/23 14:00 Resp 16 09/05/23 14:00 BP 162/71 H 09/05/23 14:00 Pulse Ox 100 09/05/23 14:00 O2 Del Method Room Air 09/05/23 14:00 BMI result Body Mass Index 26.7 general appearance is no acute distress The eyes no redness or discharge The pharynx is clear the voice is normal Neck is supple Chest clear to auscultation bilateral Pain is reproduced with deep breath in right lateral mid rib area, there is no tenderness, certain movements produce the pain as well Heart no murmur Abdomen soft nontender Extremities no calf tenderness or swelling no edema Course Course Course Narrative: patient is HIV positive, does take Bactrim ds 1 tablet once a day, most recent viral load a month ago was 50, very improved from when he started medication 6 months ago, CD4 count done 1 month ago is 139 X-ray showed a right-sided likely infiltrate, possibly atelectasis, but given that is the area of his discomfort as well as he has developed a cough he is treated for pneumonia with Augmentin and doxycycline This was discussed with his infectious disease doctor [place] who agreed as he is very well-appearing no fever no shortness of breath no loss of energy and feeling otherwise fine except for mild right-sided pain and cough that he can be discharged to follow as an outpatient Labs were sent troponin was negative no acute findings in CBC or chemistry Chest x-ray did show a right-sided infiltrate versus atelectasis EKG showed left anterior fascicle block, no acute ST elevations no acute ischemic findings Medications Administered Discontinued Medications Generic Name Dose Route Start Last Admin Trade Name Freq PRN Reason Stop Dose Admin Amoxicillin/Clavulanate Potassium 875 mg 09/05/23 16:16 09/05/23 16:24 Amoxicillin/Potassium Clav 875 Mg Tablet PO 09/05/23 16:17 875 mg ONCE ONE Administration Doxycycline Monohydrate 100 mg 09/05/23 16:16 09/05/23 16:24 Doxycycline Monohydrate 100 Mg Capsule PO 09/05/23 16:17 100 mg ONCE ONE Administration Medical Decision Making Lab Data [facility] Lab Attestation statement: I reviewed the patient's lab results. 09/05/23 14:35 09/05/23 14:35 Labs: Lab Results 09/05/23 09/05/23 Range/Units 14:35 15:19 WBC 8.7 (4.8-10.8) X10*3/uL RBC 5.46 (4.60-5.80) X10*6/uL Hgb 15.2 (14.0-18.0) g/dl Hct 47.1 (42.0-52.0) % MCV 86.3 (80.0-98.0) fL MCH 27.8 (27.0-33.0) pg MCHC 32.3 (31.0-36.0) g/dl RDW 12.7 (11.0-16.0) % Plt Count 214 D (160-400) X10*3/uL MPV 9.3 L (9.4-12.4) fL Immature Gran % (Auto) 0.2 (0.0-0.4) % Neut % (Auto) 74.6 H (45-73) % Lymph % (Auto) 15.0 L (20-40) % Tama % (Auto) 8.5 (2-11) % Eos % (Auto) 1.4 (0-4) % Baso % (Auto) 0.3 (0-2) % Lymph # (Auto) 1.3 (1.2-4.9) X10*3/uL Tama # (Auto) 0.7 (0.1-1.2) X10*3/uL Eos # (Auto) 0.1 (0.0-0.4) X10*3/uL Baso # (Auto) 0.0 (0.0-0.2) X10*3/uL Abs Immat Gran (auto) 0.02 (0.00-0.03) X10*3/uL Absolute Neuts (auto) 6.5 (2.0-8.3) x10*3/uL Absolute Nucleated RBC 0.000 (0.0-0.012) X10*3/uL Nucleated RBC % (auto) 0.0 (0.0-0.2) /100WBC PT 14.3 H (11.1-13.3) SEC INR 1.2 H (0.9-1.1) Sodium 141 (135-145) mmol/L Potassium 5.0 (3.3-5.1) mmol/L Chloride 107 (96-108) mmol/L Carbon Dioxide 28 (22-29) mmol/L Anion Gap 11 L (12-20) BUN 16 (9-16) mg/dL Creatinine 0.89 (0.5-1.4) mg/dL Estim Creat Clear Calc 73.9 Estimated GFR > 60 Random Glucose 93 (60-115) mg/dL Calcium 10.4 H D (8.4-10.2) mg/dL Total Bilirubin 0.9 (0.0-1.0) mg/dL Direct Bilirubin 0.4 (0.0-0.5) mg/dL AST 27 (5-37) U/L ALT 24 (0-40) U/L Alkaline Phosphatase 122 H (39-117) U/L Troponin I High Sens < 2.7 (<3.5-35.0) ng/L Total Protein 8.7 H (6.5-8.0) g/dL Albumin 4.5 (3.5-5.0) g/dL COVID-19 (KIRAN) Negative (Negative) COVID-19 Clin Com See Note Influenza Type A (JADON) Negative (Negative) Influenza Type B (JADON) Negative (Negative) Influenza A & B Note See Note Discharge Plan Discharge Clinical Impression: Pneumonia Patient Disposition: Home, Self-Care Additional Instructions: X-ray showed that you likely have pneumonia We spoke with Dr. wolfe who agreed outpatient treatment is best plan for right now, but you should return immediately if you develop shortness of breath fever worsening cough any worse condition or any concerns Otherwise follow closely with your doctor Prescriptions: New amoxicillin-pot clavulanate 875-125 mg tablet 1 tab PO BID Qty: 14 0RF doxycycline hyclate 100 mg capsule 100 mg PO BID 7 Days Qty: 14 0RF No Action fluconazole 200 mg tablet 200 mg PO DAILY Qty: 14 0RF diphenhydramine HCl [Benadryl Allergy] 25 mg tablet 25 mg PO TID PRN (Reason: itching) Qty: 60 0RF clotrimazole 1 % cream 1 appl topical BID 28 Days Qty: 90 0RF Interventions: ED Discharge Assessment Last Done: 09/05/23 17:31 Discharge Date/Time: 09/05/23 17:32
[2023-09-05 14:00] VITALS: BP 162/71; PULSE 54; RESP 16; TEMP 36.8; O2SAT 100
[2023-09-05 14:42] LABS: MANUAL DIFF FLAG NO
[2023-09-05 14:47] LABS: Basophils Percent Auto 0.3 % (0-2); Eosinophils Absolute Auto 0.1 X10*3/uL (0.0-0.4); Eosinophils Percent Auto 1.4 % (0-4); Hematocrit 47.1 % (42.0-52.0); Hemoglobin 15.2 g/dl (14.0-18.0); Imm Gran Abs Auto 0.02 X10*3/uL (0.00-0.03); Imm Gran Pct Auto 0.2 % (0.0-0.4); Lymphocytes Absolute Auto 1.3 X10*3/uL (1.2-4.9); Mean Corpuscular HGB Conc 32.3 g/dl (31.0-36.0); Mean Corpuscular Hemoglobin 27.8 pg (27.0-33.0); Mean Corpuscular Volume 86.3 fL (80.0-98.0); Mean Platelet Volume 9.3 fL (9.4-12.4); Monocytes Absolute Auto 0.7 X10*3/uL (0.1-1.2); Monocytes Percent Auto 8.5 % (2-11); Neutrophils Absolute Auto 6.5 x10*3/uL (2.0-8.3); Neutrophils Percent Auto 74.6 % (45-73); Platelet Count 214 X10*3/uL (160-400); Red Blood Count 5.46 X10*6/uL (4.60-5.80); Red Cell Distribution Width 12.7 % (11.0-16.0); White Blood Count 8.7 X10*3/uL (4.8-10.8)
[2023-09-05 14:50] LABS: INTERNATIONAL NORM RATIO 1.2 (0.9-1.1); Prothrombin Time 14.3 SEC (11.1-13.3)
[2023-09-05 15:05] LABS: Alanine Aminotransferase 24 U/L (0-40); Albumin Level 4.5 g/dL (3.5-5.0); Alkaline Phosphatase 122 U/L (39-117); Anion Gap 11 (12-20); Aspartate Amino Transferase 27 U/L (5-37); Bilirubin Direct 0.4 mg/dL (0.0-0.5); Bilirubin Total 0.9 mg/dL (0.0-1.0); Blood Urea Nitrogen 16 mg/dL (9-16); Calcium 10.4 mg/dL (8.4-10.2); Carbon Dioxide 28 mmol/L (22-29); Chloride 107 mmol/L (96-108); Creatinine Clr Calc Pharmacy 73.9; Estimated Glomerular Filt Rate > 60; Glucose Random 93 mg/dL (60-115); Sodium 141 mmol/L (135-145); Total Protein 8.7 g/dL (6.5-8.0)
[2023-09-05 15:13] LABS: Troponin-I High Sensitivity < 2.7 ng/L (<3.5-35.0)
[2023-09-05 15:37] LABS: COVID-19 Test Negative (Negative); IDNOW Serial# 08D9AD1C
[2023-09-05 15:43] LABS: IDNOW Serial# BCCEAD1C; Influenza A Negative (Negative); Influenza B2 Negative (Negative)
[2023-09-05] MEDS: Amoxicillin/Potassium Clav 875 MG TABLET PO (16:24)
[2023-09-05] MEDS: Doxycycline Monohydrate 100 MG CAPSULE PO (16:24)
== END 2023-09-05 17:32 | disposition home or self-care (01) ==
PROVIDERS: Physician Assistant Medical; Emergency Provider Student in an Organized Health Care Education/Training Program; PCP Registered Nurse
DX: J18.9 Pneumonia, unspecified organism (principal); R07.89 Other chest pain; R05.9 Cough, unspecified; R07.81 Pleurodynia; Z11.52 Encounter for screening for COVID-19; Z20.822 Contact with and (suspected) exposure to COVID-19; Z79.899 Other long term (current) drug therapy
CPT/HCPCS: 36415; 71046; 80048; 80076; 84484; 85025; 85610; 87502; 87635; 93005; 99283; 99284

== ENCOUNTER 2023-10-04 08:39 | Outpatient (REF) | payer MEDICAID, SELFPAY ==
--- NOTE | ~2023-10-04 | XR_ITS ---
EXAMINATION: XR CHEST CLINICAL INFORMATION: Follow-up pneumonia. COMPARISON: 09/05/2023 TECHNIQUE: 2 views of the chest were obtained. FINDINGS: The lungs are well expanded. No focal consolidation. No pleural effusion. Cardiac silhouette is unchanged. XR/XR chest 2V IMPRESSION: No acute abnormality.
== END 2023-10-04 08:40 | disposition home or self-care (01) ==
LOC: HO.HHCX 08:39
PROVIDERS: Visit Provider Registered Nurse
DX: Z87.01 Personal history of pneumonia (recurrent) (principal)
CPT/HCPCS: 71046

== ENCOUNTER 2023-11-14 08:00 | Outpatient (REF) | payer MEDICAID, SELFPAY ==
[2023-11-14 08:27] LABS: MANUAL DIFF FLAG NO
[2023-11-14 08:49] LABS: Basophils Percent Auto 0.6 % (0-2); Eosinophils Absolute Auto 0.2 X10*3/uL (0.0-0.4); Eosinophils Percent Auto 3.1 % (0-4); Hematocrit 49.5 % (42.0-52.0); Hemoglobin 15.9 g/dl (14.0-18.0); Imm Gran Abs Auto 0.03 X10*3/uL (0.00-0.03); Imm Gran Pct Auto 0.6 % (0.0-0.4); Lymphocytes Absolute Auto 1.8 X10*3/uL (1.2-4.9); Lymphocytes Percent Auto 32.8 % (20-40); Mean Corpuscular HGB Conc 32.1 g/dl (31.0-36.0); Mean Corpuscular Hemoglobin 27.5 pg (27.0-33.0); Mean Corpuscular Volume 85.5 fL (80.0-98.0); Mean Platelet Volume 10.1 fL (9.4-12.4); Monocytes Absolute Auto 0.6 X10*3/uL (0.1-1.2); Monocytes Percent Auto 10.3 % (2-11); Neutrophils Absolute Auto 2.9 x10*3/uL (2.0-8.3); Neutrophils Percent Auto 52.6 % (45-73); Platelet Count 213 X10*3/uL (160-400); Red Blood Count 5.79 X10*6/uL (4.60-5.80); Red Cell Distribution Width 12.9 % (11.0-16.0); White Blood Count 5.5 X10*3/uL (4.8-10.8)
[2023-11-14 09:26] LABS: Alanine Aminotransferase 20 U/L (0-40); Aspartate Amino Transferase 27 U/L (5-37); Estimated Glomerular Filt Rate > 60
[2023-11-14 09:35] LABS: Syphilis Screen Nonreactive (Nonreactive)
[2023-11-14 11:25] LABS: CT PCR NOT DETECTED (Not Detect.); NG PCR NOT DETECTED (Not Detect.)
[2023-11-15 10:44] LABS: Absolute CD3 Count 1490 cells/uL (840-3060); Absolute CD4 Count 164 cells/uL (490-1740); Absolute CD8 Count 1300 cells/uL (180-1170); Absolute Lymphocytes 1679 cells/uL (850-3900); CD4 CD8 Ratio 0.13 (0.86-5.00); Percent CD3 Cells 89 % (57-85); Percent CD4 Cells 10 % (30-61); Percent CD8 Cells 77 % (12-42)
[2023-11-15 19:48] LABS: HCV Log PCR <1.18 NOT DETECTED Log IU/mL (NOT DETECTED); HepC Viral Load <15 NOT DETECTED IU/mL (NOT DETECTED)
[2023-11-16 13:28] LABS: HIV RNA PCR Qn Copies 23 copies/mL (NOT DETECTED); HIV RNA PCR Qn Log Copies 1.36 (NOT DETECTED)
== END 2023-11-14 08:01 | disposition home or self-care (01) ==
LOC: HO.LAB 08:00
PROVIDERS: PCP Registered Nurse; Visit Provider Internal Medicine Infectious Disease
DX: B20 Human immunodeficiency virus [HIV] disease (principal); B19.20 Unspecified viral hepatitis C without hepatic coma
CPT/HCPCS: 0353U; 82565; 84450; 84460; 85025; 86359; 86360; 86780; 87522; 87536

== ENCOUNTER 2024-01-24 08:25 | Outpatient (REF) | payer MEDICAID, SELFPAY ==
[2024-01-24 11:23] LABS: MANUAL DIFF FLAG NO
[2024-01-24 11:30] LABS: Basophils Percent Auto 0.6 % (0-2); Eosinophils Absolute Auto 0.2 X10*3/uL (0.0-0.4); Eosinophils Percent Auto 2.8 % (0-4); Hematocrit 48.7 % (42.0-52.0); Hemoglobin 15.8 g/dl (14.0-18.0); Imm Gran Abs Auto 0.01 X10*3/uL (0.00-0.03); Imm Gran Pct Auto 0.2 % (0.0-0.4); Lymphocytes Absolute Auto 1.5 X10*3/uL (1.2-4.9); Lymphocytes Percent Auto 27.1 % (20-40); Mean Corpuscular HGB Conc 32.4 g/dl (31.0-36.0); Mean Corpuscular Hemoglobin 27.7 pg (27.0-33.0); Mean Corpuscular Volume 85.4 fL (80.0-98.0); Mean Platelet Volume 10.5 fL (9.4-12.4); Monocytes Absolute Auto 0.5 X10*3/uL (0.1-1.2); Monocytes Percent Auto 9.1 % (2-11); Neutrophils Absolute Auto 3.3 x10*3/uL (2.0-8.3); Neutrophils Percent Auto 60.2 % (45-73); Platelet Count 185 X10*3/uL (160-400); Red Cell Distribution Width 13.5 % (11.0-16.0); White Blood Count 5.4 X10*3/uL (4.8-10.8)
[2024-01-24 11:49] LABS: Alanine Aminotransferase 19 U/L (0-40); Albumin Level 4.4 g/dL (3.5-5.0); Alkaline Phosphatase 111 U/L (39-117); Aspartate Amino Transferase 25 U/L (5-37); Bilirubin Direct 0.3 mg/dL (0.0-0.5); Bilirubin Total 0.8 mg/dL (0.0-1.0); Total Protein 7.6 g/dL (6.5-8.0)
[2024-01-25 11:09] LABS: Absolute CD4 Count 143 cells/uL (490-1740); Absolute CD8 Count 1195 cells/uL (180-1170); Absolute Lymphocytes 1510 cells/uL (850-3900); CD4 CD8 Ratio 0.12 (0.86-5.00); Percent CD4 Cells 9 % (30-61); Percent CD8 Cells 79 % (12-42)
[2024-01-26 20:14] LABS: HIV RNA PCR Qn Copies NOT DETECTED copies/mL (NOT DETECTED); HIV RNA PCR Qn Log Copies NOT DETECTED (NOT DETECTED)
== END 2024-01-24 08:26 | disposition home or self-care (01) ==
LOC: HO.HHCL 08:25
PROVIDERS: Visit Provider Registered Nurse
DX: B20 Human immunodeficiency virus [HIV] disease (principal)
CPT/HCPCS: 36415; 80076; 85025; 86360; 87536

== ENCOUNTER 2024-02-21 07:55 | Outpatient (REF) | payer MEDICAID, SELFPAY ==
[2024-02-21 08:23] LABS: MANUAL DIFF FLAG NO
[2024-02-21 08:42] LABS: Basophils Percent Auto 0.6 % (0-2); Eosinophils Absolute Auto 0.1 X10*3/uL (0.0-0.4); Eosinophils Percent Auto 2.2 % (0-4); Hematocrit 48.9 % (42.0-52.0); Hemoglobin 16.1 g/dl (14.0-18.0); Imm Gran Abs Auto 0.01 X10*3/uL (0.00-0.03); Imm Gran Pct Auto 0.2 % (0.0-0.4); Lymphocytes Absolute Auto 1.5 X10*3/uL (1.2-4.9); Lymphocytes Percent Auto 29.8 % (20-40); Mean Corpuscular HGB Conc 32.9 g/dl (31.0-36.0); Mean Corpuscular Hemoglobin 27.9 pg (27.0-33.0); Mean Corpuscular Volume 84.6 fL (80.0-98.0); Monocytes Absolute Auto 0.4 X10*3/uL (0.1-1.2); Monocytes Percent Auto 8.6 % (2-11); Neutrophils Absolute Auto 2.9 x10*3/uL (2.0-8.3); Neutrophils Percent Auto 58.6 % (45-73); Platelet Count 177 X10*3/uL (160-400); Red Blood Count 5.78 X10*6/uL (4.60-5.80); Red Cell Distribution Width 13.5 % (11.0-16.0); White Blood Count 4.9 X10*3/uL (4.8-10.8)
[2024-02-21 09:21] LABS: Alanine Aminotransferase 21 U/L (0-40); Aspartate Amino Transferase 26 U/L (5-37); Estimated Glomerular Filt Rate > 60
[2024-02-21 09:38] LABS: Syphilis Screen Nonreactive (Nonreactive)
[2024-02-21 12:17] LABS: CT PCR NOT DETECTED (Not Detect.); NG PCR NOT DETECTED (Not Detect.)
[2024-02-22 10:53] LABS: Absolute CD3 Count 1345 cells/uL (840-3060); Absolute CD4 Count 136 cells/uL (490-1740); Absolute CD8 Count 1203 cells/uL (180-1170); Absolute Lymphocytes 1503 cells/uL (850-3900); CD4 CD8 Ratio 0.11 (0.86-5.00); Percent CD3 Cells 89 % (57-85); Percent CD4 Cells 9 % (30-61); Percent CD8 Cells 80 % (12-42)
[2024-02-24 08:44] LABS: HIV RNA PCR Qn Copies <20 DETECTED copies/mL (NOT DETECTED); HIV RNA PCR Qn Log Copies <1.30 DETECTED (NOT DETECTED)
== END 2024-02-21 07:56 | disposition home or self-care (01) ==
LOC: HO.LAB 07:55
PROVIDERS: PCP Registered Nurse; Visit Provider Internal Medicine Infectious Disease
DX: B20 Human immunodeficiency virus [HIV] disease (principal)
CPT/HCPCS: 0353U; 82565; 84450; 84460; 85025; 86359; 86360; 86780; 87536

== ENCOUNTER 2024-07-25 08:28 | Outpatient (REF) | payer MEDICAID, SELFPAY ==
[2024-07-25 08:47] LABS: MANUAL DIFF FLAG NO
[2024-07-25 09:03] LABS: Basophils Percent Auto 0.6 % (0-2); Eosinophils Absolute Auto 0.2 X10*3/uL (0.0-0.4); Eosinophils Percent Auto 2.3 % (0-4); Hematocrit 49.7 % (42.0-52.0); Hemoglobin 16.5 g/dl (14.0-18.0); Imm Gran Abs Auto 0.02 X10*3/uL (0.00-0.03); Imm Gran Pct Auto 0.3 % (0.0-0.4); Lymphocytes Absolute Auto 1.4 X10*3/uL (1.2-4.9); Lymphocytes Percent Auto 21.5 % (20-40); Mean Corpuscular HGB Conc 33.2 g/dl (31.0-36.0); Mean Corpuscular Hemoglobin 28.5 pg (27.0-33.0); Mean Corpuscular Volume 85.8 fL (80.0-98.0); Mean Platelet Volume 9.7 fL (9.4-12.4); Monocytes Absolute Auto 0.5 X10*3/uL (0.1-1.2); Monocytes Percent Auto 8.1 % (2-11); Neutrophils Absolute Auto 4.5 x10*3/uL (2.0-8.3); Neutrophils Percent Auto 67.2 % (45-73); Platelet Count 183 X10*3/uL (160-400); Red Blood Count 5.79 X10*6/uL (4.60-5.80); Red Cell Distribution Width 13.3 % (11.0-16.0); White Blood Count 6.7 X10*3/uL (4.8-10.8)
[2024-07-25 09:33] LABS: Alanine Aminotransferase 21 U/L (0-40); Aspartate Amino Transferase 25 U/L (5-37); Estimated Glomerular Filt Rate > 60
[2024-07-25 09:48] LABS: Syphilis Screen Nonreactive (Nonreactive)
[2024-07-29 02:33] LABS: HIV RNA PCR Qn Copies <20 DETECTED copies/mL (NOT DETECTED); HIV RNA PCR Qn Log Copies <1.30 DETECTED (NOT DETECTED)
[2024-07-29 22:49] LABS: Absolute CD3 Count 1369 cells/uL (840-3060); Absolute CD4 Count 154 cells/uL (490-1740); Absolute CD8 Count 1212 cells/uL (180-1170); Absolute Lymphocytes 1526 cells/uL (850-3900); CD4 CD8 Ratio 0.13 (0.86-5.00); Percent CD3 Cells 90 % (57-85); Percent CD4 Cells 10 % (30-61); Percent CD8 Cells 79 % (12-42)
== END 2024-07-25 08:29 | disposition home or self-care (01) ==
LOC: HO.LAB 08:28
PROVIDERS: PCP Registered Nurse; Visit Provider Internal Medicine Infectious Disease
DX: B20 Human immunodeficiency virus [HIV] disease (principal)
CPT/HCPCS: 36415; 82565; 84450; 84460; 85025; 86359; 86360; 86780; 87536

== ENCOUNTER 2024-10-01 09:40 | Outpatient (AMB) | payer MEDICAID, SELFPAY ==
--- NOTE | 2024-10-01 09:47 | A.OFFVIS_ITS ---
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 His heart rate is in the 50s. This is almost physiologic. He has no symptoms. He said he walks extensively and has no symptoms of lightheadedness syncope. Reviewing his EKGs for last few years he has had sinus bradycardia in the past. He denies any exertional chest pain or shortness of breath. No heart failure symptoms. Currently not on any medications. [facility] Family History Mother No problems noted. Father No problems noted. Social History Alcohol intake: never Patient Tobacco Use Status: Never used Tobacco Review of Systems Const Denies weakness ENT Denies dizziness Card Denies chest pain, Denies chest pain with activity, Denies syncope, Denies rapid heart rate, Denies pedal edema, Denies edema, Denies leg edema, Denies lightheadedness, Denies palpitations, Denies dyspnea, Denies dyspnea on exertion and Denies orthopnea Resp Denies cough, Denies dyspnea and Denies dyspnea on exertion GI Denies hematochezia and Denies change in stool character Musc Denies abnormal gait, Denies muscle cramps, Denies muscle weakness, Denies numbness, Denies radiating pain into limb and Denies tingling Neuro Denies abnormal gait, Denies dizziness, Denies syncope, Denies numbness, Denies tingling and Denies weakness Endo Denies palpitations Physical Exam Vital Signs: Last Vital Signs Pulse 57 10/01/24 09:48 BP 128/60 10/01/24 09:48 BMI result Body Mass Index 31.4 Const General: cooperative, comfortable, no acute distress, alert, awake and Physically active Nutritional Appearance: overweight Orientation/consciousness: patient oriented x3 Limitations: no limitations HEENT Head: Yes normocephalic and Yes atraumatic Neck Neck: Yes trachea midline, Yes supple and Yes no JVD Resp Effort & Inspection: normal respiratory effort Auscultation: clear to auscultation bilaterally Cardio Jugular venous distension: no JVD Palpation: normal PMI Rate: regular rate Rhythm: regular rhythm Heart sounds: S1 normal heart sound present, S2 normal heart sound present, no click, no gallops, no murmurs and no rubs GI Auscultation: normal bowel sounds Skin General skin exam: no rashes or lesions noted Neuro General: patient oriented x3 and no focal motor deficits Extrem General: Yes no clubbing, cyanosis or edema Psych Appearance: grossly normal Office Procedures EKG Details: EKG shows sinus bradycardia 57 beats per minute otherwise normal EKG 68227-[id number], Complete Assessment & Plan Assessment & Plan (1) Sinus bradycardia: Code(s): R00.1 - Bradycardia, unspecified Plan: Sinus bradycardia in this middle-aged man probably appears to be physiologic given his high level of activity level. He has currently no symptoms whatsoever. To complete workup I would check his TSH otherwise I do not think any other workup is required at this point in time. No interventions required at this point in time. Discussed with him that his sinus bradycardia may be normal for him. He understands and agrees. Will follow up with him if need be Medications: Discontinued clotrimazole 1% Discontinued Reason: Patient no longer taking 1 appl topical BID 4 weeks 90 grams 0RF diphenhydramine HCl (Benadryl Allergy) Discontinued Reason: Patient no longer taking 25 mg PO TID PRN 60 tabs 0RF itching fluconazole Discontinued Reason: Patient no longer taking 200 mg PO DAILY 14 tabs 0RF amoxicillin-pot clavulanate 875-125 mg Discontinued Reason: Patient no longer taking 1 tab PO BID 14 tabs 0RF doxycycline hyclate Discontinued Reason: Patient no longer taking 100 mg PO BID 7 days 14 caps 0RF Coding Level of Care Code New Pt Level 3 (28571) Complex EM visit Add On G2211 Diagnoses Sinus bradycardia R00.1 CPT Codes EKG - CPT: 60377-[id number], Complete ([id number])
[2024-10-01 09:48] VITALS: BP 128/60; PULSE 57; BMI 31.4
--- OUTSIDE RECORDS SUMMARY | 2024-10-07 17:16 | XMS_ITS ---
Author Organization [facility] Address [address] [place] [address] Care Team Providers Care Inclinometer Tester Name Role Phone BORIS GRAY MD Primary Care Provider UnavailCatrachito Rivera Unavailable [phone] REASON FOR VISIT Patient presents today for a screening colonoscopy Encounters Encounter Location Date Provider Diagnosis [facility] [address] [place] [address] 06/10/2024 Catrachito Bustillo PLAN OF TREATMENT No Information
--- OUTSIDE RECORDS SUMMARY | 2024-10-07 17:16 | XMS_ITS | Patient Health Record ---
Author Organization [facility] Address [address] [place] [address] Care Team Providers Care Accounts Payable Lead Name Role Phone BORIS GRAY MD Primary Care Provider Unavaila ble Catrachito Bustillo Unavailable [phone] REASON FOR REFERRAL Referring Provider First Name BORIS Referring Provider Last Name ISAAC Referred Organization [facility] Referred Provider Catrachito Bustillo Referred Address [address],[facility] [address],[place], [place],[address], Referred Provider Specialty Gastroentero logy Referral Priority Routine SOCIAL HISTORY Sex Assigned At : Social History Observation Description Sex Assigned At Unknown Encounters Encounter Location Date Provider Diagnosis [facility] [address] [place] [address] 06/10/2024 Catrachito Bustillo [facility] [address] [place] [address] 06/10/2024 Catrachito Bustillo PLAN OF TREATMENT No Information Insurance Providers Payer Name Payer Address Payer Phone Subscriber Number Group Number Insured Name Patient Relationship to Insured Coverage Start Date Coverage End Date [place] [address] [place] [id number] AFSHIN WHEELER Self - patient is the insured
--- OUTSIDE RECORDS SUMMARY | 2024-10-07 17:16 | XMS_ITS ---
Author Organization [facility] Address [address] [place] [address] Care Team Providers Care Automotive Production Worker Name Role Phone BORIS GRAY MD Primary Care Provider UnavailCatrachito Rivera Unavailable [phone] REASON FOR VISIT no show Encounters Encounter Location Date Provider Diagnosis [facility] [address] [place] [address] 06/10/2024 Catrachito Bustillo PLAN OF TREATMENT No Information
== END 2024-10-01 10:54 | disposition home or self-care (01) ==
PROVIDERS: PCP Registered Nurse; Visit Provider Internal Medicine Cardiovascular Disease
DX: R00.1 Bradycardia, unspecified (principal)
CPT/HCPCS: 93010; 99203

== ENCOUNTER → 2024-10-01 09:40 | Outpatient (BNVA) | payer MEDICAID, SELFPAY | PROVIDERS: PCP Registered Nurse; Visit Provider Internal Medicine Cardiovascular Disease | DX: R00.1 Bradycardia, unspecified (principal) | CPT/HCPCS: 93005; 99202 ==

== ENCOUNTER 2024-10-17 08:02 | Outpatient (REF) | payer MEDICAID, SELFPAY ==
--- OUTSIDE RECORDS SUMMARY | 2024-10-17 08:05 | XMS_ITS ---
Author Organization [facility] Address [address] [place] [address] Care Team Providers Care Steam Frame Operator Name Role Phone BORIS GRAY MD Primary Care Provider UnavailCatrachito Rivera Unavailable [phone] REASON FOR VISIT Patient presents today for a screening colonoscopy Encounters Encounter Location Date Provider Diagnosis [facility] [address] [place] [address] 06/10/2024 Catrachito Bustillo PLAN OF TREATMENT No Information
--- OUTSIDE RECORDS SUMMARY | 2024-10-17 08:05 | XMS_ITS ---
Author Organization [facility] Address [address] [place] [address] Care Team Providers Care Chemist Name Role Phone BORIS GRAY MD Primary Care Provider UnavailCatrachito Rivera Unavailable [phone] REASON FOR VISIT no show Encounters Encounter Location Date Provider Diagnosis [facility] [address] [place] [address] 06/10/2024 Catrachito Bustillo PLAN OF TREATMENT No Information
--- OUTSIDE RECORDS SUMMARY | 2024-10-17 08:06 | XMS_ITS | Patient Health Record ---
Author Organization [facility] Address [address] [place] [address] Care Team Providers Care Passport Support Associate Name Role Phone BORIS GRAY MD Primary Care Provider Unavaila ble Catrachito Bustillo Unavailable [phone] REASON FOR REFERRAL Referring Provider First Name BORIS Referring Provider Last Name ISAAC Referred Organization [facility] Referred Provider Catrachito Bustillo Referred Address [address],[facility] [address],[place], [place],[address], Referred Provider Specialty Gastroentero logy Referral Priority Routine SOCIAL HISTORY Sex Assigned At : Social History Observation Description Sex Assigned At Unknown Encounters Encounter Location Date Provider Diagnosis [facility] [address] [place] [address] 06/10/2024 Catrachito Bustillo [facility] [address] [place] [address] 06/10/2024 Catrachito Bustillo PLAN OF TREATMENT No Information Insurance Providers Payer Name Payer Address Payer Phone Subscriber Number Group Number Insured Name Patient Relationship to Insured Coverage Start Date Coverage End Date [place] [address] [place] [id number] AFSHIN WHEELER Self - patient is the insured
[2024-10-17 08:33] LABS: MANUAL DIFF FLAG NO
[2024-10-17 09:08] LABS: Basophils Percent Auto 0.6 % (0-2); Eosinophils Absolute Auto 0.1 X10*3/uL (0.0-0.4); Eosinophils Percent Auto 1.4 % (0-4); Hematocrit 49.3 % (42.0-52.0); Hemoglobin 16.3 g/dl (14.0-18.0); Imm Gran Abs Auto 0.01 X10*3/uL (0.00-0.03); Imm Gran Pct Auto 0.2 % (0.0-0.4); Lymphocytes Absolute Auto 1.6 X10*3/uL (1.2-4.9); Mean Corpuscular HGB Conc 33.1 g/dl (31.0-36.0); Mean Corpuscular Hemoglobin 28.2 pg (27.0-33.0); Mean Corpuscular Volume 85.3 fL (80.0-98.0); Mean Platelet Volume 10.3 fL (9.4-12.4); Monocytes Absolute Auto 0.5 X10*3/uL (0.1-1.2); Monocytes Percent Auto 7.7 % (2-11); Neutrophils Absolute Auto 4.2 x10*3/uL (2.0-8.3); Neutrophils Percent Auto 65.1 % (45-73); Platelet Count 177 X10*3/uL (160-400); Red Blood Count 5.78 X10*6/uL (4.60-5.80); Red Cell Distribution Width 13.1 % (11.0-16.0); White Blood Count 6.4 X10*3/uL (4.8-10.8)
[2024-10-17 10:16] LABS: Alanine Aminotransferase 26 U/L (0-40); Aspartate Amino Transferase 31 U/L (5-37); Estimated Glomerular Filt Rate > 60
[2024-10-17 10:32] LABS: Syphilis Screen Nonreactive (Nonreactive)
[2024-10-17 11:11] LABS: CT PCR NOT DETECTED (Not Detect.); NG PCR NOT DETECTED (Not Detect.)
[2024-10-21 02:39] LABS: HIV RNA PCR Qn Copies NOT DETECTED copies/mL (NOT DETECTED); HIV RNA PCR Qn Log Copies NOT DETECTED (NOT DETECTED)
[2024-10-22 13:43] LABS: Absolute CD3 Count 1578 cells/uL (840-3060); Absolute CD4 Count 168 cells/uL (490-1740); Absolute CD8 Count 1394 cells/uL (180-1170); Absolute Lymphocytes 1787 cells/uL (850-3900); CD4 CD8 Ratio 0.12 (0.86-5.00); Percent CD3 Cells 88 % (57-85); Percent CD4 Cells 9 % (30-61); Percent CD8 Cells 78 % (12-42)
== END 2024-10-17 08:03 | disposition home or self-care (01) ==
LOC: HO.LAB 08:02
PROVIDERS: PCP Registered Nurse; Visit Provider Internal Medicine Infectious Disease
DX: B20 Human immunodeficiency virus [HIV] disease (principal)
CPT/HCPCS: 82565; 84450; 84460; 85025; 86359; 86360; 86780; 87491; 87536; 87591

== ENCOUNTER 2025-01-15 07:57 | Outpatient (REF) | payer MEDICAID, SELFPAY ==
[2025-01-15 08:20] LABS: MANUAL DIFF FLAG NO
[2025-01-15 08:44] LABS: Basophils Percent Auto 0.5 % (0-2); Eosinophils Absolute Auto 0.1 X10*3/uL (0.0-0.4); Eosinophils Percent Auto 1.7 % (0-4); Hematocrit 49.3 % (42.0-52.0); Hemoglobin 16.4 g/dl (14.0-18.0); Imm Gran Abs Auto 0.01 X10*3/uL (0.00-0.03); Imm Gran Pct Auto 0.2 % (0.0-0.4); Lymphocytes Absolute Auto 1.2 X10*3/uL (1.2-4.9); Lymphocytes Percent Auto 19.1 % (20-40); Mean Corpuscular HGB Conc 33.3 g/dl (31.0-36.0); Mean Corpuscular Volume 84.1 fL (80.0-98.0); Mean Platelet Volume 10.1 fL (9.4-12.4); Monocytes Absolute Auto 0.5 X10*3/uL (0.1-1.2); Monocytes Percent Auto 8.2 % (2-11); Neutrophils Absolute Auto 4.6 x10*3/uL (2.0-8.3); Neutrophils Percent Auto 70.3 % (45-73); Platelet Count 183 X10*3/uL (160-400); Red Blood Count 5.86 X10*6/uL (4.60-5.80); Red Cell Distribution Width 13.2 % (11.0-16.0); White Blood Count 6.5 X10*3/uL (4.8-10.8)
[2025-01-15 09:08] LABS: Alanine Aminotransferase 27 U/L (0-40); Aspartate Amino Transferase 34 U/L (5-37); Estimated Glomerular Filt Rate > 60
[2025-01-15 09:35] LABS: Syphilis Screen Nonreactive (Nonreactive)
[2025-01-15 10:11] LABS: CT PCR NOT DETECTED (Not Detect.); NG PCR NOT DETECTED (Not Detect.)
[2025-01-15 10:50] LABS: HIV AB/AG Reactive (Nonreactive)
[2025-01-16 14:48] LABS: HCV Log PCR <1.18 NOT DETECTED Log IU/mL (NOT DETECTED); HepC Viral Load <15 NOT DETECTED IU/mL (NOT DETECTED)
[2025-01-16 17:19] LABS: HIV 1 Antibody POSITIVE (NEGATIVE); HIV 2 Antibody NEGATIVE (NEGATIVE)
[2025-01-20 14:09] LABS: Absolute CD3 Count 1275 cells/uL (840-3060); Absolute CD4 Count 172 cells/uL (490-1740); Absolute CD8 Count 1108 cells/uL (180-1170); Absolute Lymphocytes 1516 cells/uL (850-3900); CD4 CD8 Ratio 0.16 (0.86-5.00); Percent CD3 Cells 84 % (57-85); Percent CD4 Cells 11 % (30-61); Percent CD8 Cells 73 % (12-42)
== END 2025-01-15 07:58 | disposition home or self-care (01) ==
LOC: HO.LAB 07:57
PROVIDERS: Visit Provider Internal Medicine Infectious Disease
DX: B20 Human immunodeficiency virus [HIV] disease (principal)
CPT/HCPCS: 36415; 82565; 84450; 84460; 85025; 86359; 86360; 86701; 86702; 86780; 87389; 87491; 87522; 87591

== ENCOUNTER 2025-01-28 08:03 | Outpatient (REF) | payer MEDICAID, SELFPAY ==
--- OUTSIDE RECORDS SUMMARY | 2025-01-28 08:09 | XMS_ITS ---
Author Organization [facility] Address [address] [place] [address] Care Team Providers Care Lead C Developer Name Role Phone ISAAC RINALDI, BORIS Primary Care Provider Catrachito Rose [phone] REASON FOR VISIT Patient presents today for a screening colonoscopy Encounters Encounter Location Date Provider Diagnosis [facility] [address] [place] [address] 06/10/2024 Catrachito Bustillo Plan Of Treatment No Information Progress Notes * AFSHIN WHEELERDOB:1960 ([age] yo M)Acc No.[id number]:06/10/2024 Progress Notes Patient:?AFSHIN WHEELER Provider:?Catrachito Bustillo MD :1960???Age:63 Y???Sex:Male Fitz e:06/10/2024 Address:[address], [place], [place] Pcp:BORIS GRAY MD Subjective: * Chief Complaints: * ???1. Patient presents today for a screening colonoscopy. * Medical History:? Objective: * Vitals:? Assessment: Plan: * Treatment: * * The named appointment provid er may or may not be the originator of this progress note, and it is not deemed complete until electronically signed by the appointment provider. Sign off status: Pending * Provider:?Catrachito Bustillo MD Date:? 024 Generated for Hugh gore/Moriah/eTclarencesmitting on:?01/28/2025 08:09 AM EDT
--- OUTSIDE RECORDS SUMMARY | 2025-01-28 08:09 | XMS_ITS | Patient Health Record ---
Author Organization [facility] Address [address] [place] [address] Care Team Providers Care Spindraw Operator Name Role Phone BORIS GRAY MD Primary Care Provider Unavaila ble Catrachito Bustillo Unavailable [phone] Reason For Referral Referring Provider First Name BORIS Referring Provider Last Name ISAAC Referred Organization [facility] Referred Provider Catrachito Bustillo Referred Address [address] [facility] [facility] [address],[place],[address], Referred Provider Specialty Gastroentero logy Referral Priority Routine Encounters Encounter Location Date Provider Diagnosis [facility] [address] [place] [address] 06/10/2024 Catrachito Bustillo Plan Of Treatment No Information Insurance Providers Payer Name Payer Address Payer Phone Subscriber Number Group Number Insured Name Patient Relationship to Insured Coverage Start Date Coverage End Date [facility] [address] [place] [id number] [id number] [employer] Self - patient is the insured
--- OUTSIDE RECORDS SUMMARY | 2025-01-28 08:10 | XMS_ITS ---
Author Organization [facility] Address [address] [place] [address] Care Team Providers Care Coordinator Cardiopulmonary Services Name Role Phone BORIS GRAY MD Primary Care Provider Catrachito Rose [phone] REASON FOR VISIT no show Encounters Encounter Location Date Provider Diagnosis [facility] [address] [place] [address] 06/10/2024 Catrachito Bustillo Plan Of Treatment No Information Progress Notes * AFSHIN WHEELERDOB:1960 ([age] yo M)Acc No.[id number]:06/10/2024 Patient:?AFSHIN WHEELER :1960???Age:63 Y???Sex:Male Address:[address] [facility], [place] [address] * true * Date:? Generated for Hugh gore/Moriah/eTransmitting on:?01/28/2025 08:09 AM EDT
[2025-01-29 17:49] LABS: HIV RNA PCR Qn Copies 31 copies/mL (NOT DETECTED); HIV RNA PCR Qn Log Copies 1.49 (NOT DETECTED)
== END 2025-01-28 08:04 | disposition home or self-care (01) ==
LOC: HO.LAB 08:03
PROVIDERS: PCP Registered Nurse; Visit Provider Internal Medicine Infectious Disease
DX: B20 Human immunodeficiency virus [HIV] disease (principal)
CPT/HCPCS: 36415; 87536

== ENCOUNTER 2025-04-14 07:55 | Outpatient (REF) | payer MEDICAID, SELFPAY ==
[2025-04-14 08:13] LABS: MANUAL DIFF FLAG NO
[2025-04-14 08:42] LABS: Basophils Percent Auto 0.7 % (0-2); Eosinophils Absolute Auto 0.2 X10*3/uL (0.0-0.4); Eosinophils Percent Auto 3.3 % (0-4); Hemoglobin 15.7 g/dl (14.0-18.0); Imm Gran Abs Auto 0.02 X10*3/uL (0.00-0.03); Imm Gran Pct Auto 0.3 % (0.0-0.4); Lymphocytes Absolute Auto 1.8 X10*3/uL (1.2-4.9); Lymphocytes Percent Auto 29.9 % (20-40); Mean Corpuscular Hemoglobin 27.8 pg (27.0-33.0); Mean Corpuscular Volume 86.7 fL (80.0-98.0); Mean Platelet Volume 10.3 fL (9.4-12.4); Monocytes Absolute Auto 0.6 X10*3/uL (0.1-1.2); Monocytes Percent Auto 10.6 % (2-11); Neutrophils Absolute Auto 3.3 x10*3/uL (2.0-8.3); Neutrophils Percent Auto 55.2 % (45-73); Platelet Count 184 X10*3/uL (160-400); Red Blood Count 5.65 X10*6/uL (4.60-5.80); Red Cell Distribution Width 13.5 % (11.0-16.0); White Blood Count 6.1 X10*3/uL (4.8-10.8)
[2025-04-14 09:11] LABS: Alanine Aminotransferase 24 U/L (0-40); Aspartate Amino Transferase 32 U/L (5-37); Estimated Glomerular Filt Rate > 60
[2025-04-14 09:24] LABS: Syphilis Screen Nonreactive (Nonreactive)
[2025-04-14 12:03] LABS: CT PCR NOT DETECTED (Not Detect.); NG PCR NOT DETECTED (Not Detect.)
[2025-04-15 15:09] LABS: HIV RNA PCR Qn Copies NOT DETECTED copies/mL (NOT DETECTED); HIV RNA PCR Qn Log Copies NOT DETECTED (NOT DETECTED)
[2025-04-18 16:37] LABS: Absolute CD3 Count 1627 cells/uL (840-3060); Absolute CD4 Count 168 cells/uL (490-1740); Absolute CD8 Count 1469 cells/uL (180-1170); Absolute Lymphocytes 1825 cells/uL (850-3900); CD4 CD8 Ratio 0.11 (0.86-5.00); Percent CD3 Cells 89 % (57-85); Percent CD4 Cells 9 % (30-61); Percent CD8 Cells 80 % (12-42)
== END 2025-04-14 07:56 | disposition home or self-care (01) ==
LOC: HO.LAB 07:55
PROVIDERS: PCP Registered Nurse; Visit Provider Internal Medicine Infectious Disease
DX: B20 Human immunodeficiency virus [HIV] disease (principal)
CPT/HCPCS: 82565; 84450; 84460; 85025; 86359; 86360; 86780; 87491; 87536; 87591

== ENCOUNTER 2025-06-11 08:40 | Outpatient (REF) | payer MEDICAID, SELFPAY ==
--- OUTSIDE RECORDS SUMMARY | 2025-06-11 08:55 | XMS_ITS | Patient Health Record ---
Author Organization [facility] Address [address] [place] [address] Care Team Providers Care Money Order Clerk Name Role Phone BORIS GRAY MD Primary Care Provider Catrachito Rose Unavailable [phone] Reason For Referral No Information Plan Of Treatment No Information Insurance Providers Payer Name Payer Address Payer Phone Subscriber Number Group Number Insured Name Patient Relationship to Insured Coverage Start Date Coverage End Date MEDICAID OF [facility] [address] [place] [phone] [phone] [id number] AFSHIN WHEELER Self - patient is the insured
[2025-06-11 11:27] LABS: MANUAL DIFF FLAG NO
[2025-06-11 11:41] LABS: Hematocrit 49.5 % (42.0-52.0); Hemoglobin 16.1 g/dl (14.0-18.0); Imm Gran Abs Auto 0.02 X10*3/uL (0.00-0.03); Imm Gran Pct Auto 0.3 % (0.0-0.4); Lymphocytes Absolute Auto 1.3 X10*3/uL (1.2-4.9); Mean Corpuscular HGB Conc 32.5 g/dl (31.0-36.0); Mean Corpuscular Hemoglobin 28.1 pg (27.0-33.0); Mean Corpuscular Volume 86.5 fL (80.0-98.0); NRBC Abs Auto 0.000 X10*3/uL (0.0-0.012); NRBC Pct Auto 0.0 /100WBC (0.0-0.2); Platelet Count 189 X10*3/uL (160-400); Red Blood Count 5.72 X10*6/uL (4.60-5.80); White Blood Count 6.1 X10*3/uL (4.8-10.8)
[2025-06-11 12:09] LABS: Hemoglobin A1C 158.3495 umol/L; Total Hemoglobin (HGBA1C) 4121.9702 umol/L
[2025-06-11 12:10] LABS: Alanine Aminotransferase 24 U/L (0-40); Albumin Level 4.5 g/dL (3.5-5.0); Alkaline Phosphatase 115 U/L (39-117); Anion Gap 11 (12-20); Aspartate Amino Transferase 37 U/L (5-37); Blood Urea Nitrogen 21 mg/dL (9-16); Calcium 9.4 mg/dL (8.4-10.2); Carbon Dioxide 26 mmol/L (22-29); Chloride 109 mmol/L (96-108); Cholesterol 159 mg/dL (<200); Estimated Glomerular Filt Rate > 60; HDL Cholesterol 33 mg/dL (>40); Magnesium 2.0 mg/dL (1.6-2.6); Potassium 4.6 mmol/L (3.3-5.1); Sodium 141 mmol/L (135-145); Total Protein 7.3 g/dL (6.5-8.0); Triglycerides 159 mg/dL (<150)
[2025-06-11 12:13] LABS: HBS Num1 > 1000.00 mIU/mL (0-7.99); HBc Num1 0.88 S/CO (0.00-0.79); HBsAGNum1 0.36 S/CO (0.00-0.99); Hepatitis B Surface Antigen Negative (Negative); ~Hepatitis B Surface Antibody REACTIVE (Nonreactive)
[2025-06-11 13:37] LABS: HBc Num2 0.87 S/CO; HBc Num3 0.88 S/CO
[2025-06-12 14:34] LABS: HCV Log PCR <1.18 NOT DETECTED Log IU/mL (NOT DETECTED); HepC Viral Load <15 NOT DETECTED IU/mL (NOT DETECTED)
[2025-06-12 15:28] LABS: HIV RNA PCR Qn Copies 152 copies/mL (NOT DETECTED); HIV RNA PCR Qn Log Copies 2.18 (NOT DETECTED)
[2025-06-17 18:14] LABS: Absolute CD8 Count 965 cells/uL (180-1170); Percent CD8 Cells 71 % (12-42)
== END 2025-06-11 08:41 | disposition home or self-care (01) ==
LOC: HO.HHCL 08:40
PROVIDERS: PCP Registered Nurse; Visit Provider Registered Nurse
DX: Z00.00 Encounter for general adult medical examination without abnormal findings (principal); B20 Human immunodeficiency virus [HIV] disease; R00.1 Bradycardia, unspecified; Z11.3 Encounter for screening for infections with a predominantly sexual mode of transmission; Z11.59 Encounter for screening for other viral diseases
CPT/HCPCS: 36415; 80053; 80061; 83036; 83735; 84443; 85025; 86360; 86592; 86704; 86706; 87340; 87522; 87536

== ENCOUNTER 2025-08-05 07:55 | Outpatient (REF) | payer MEDICAID, SELFPAY ==
--- OUTSIDE RECORDS SUMMARY | 2024-06-10 09:40 | XMS_ITS ---
Author Organization [facility] Address [address] [place] [address] Care Team Providers Care Peer Counselor Name Role Phone ISAAC RINALDI, BORIS Primary Care Provider Catrachito Rose [phone] REASON FOR VISIT Patient presents today for a screening colonoscopy Encounters Encounter Location Date Provider Diagnosis [facility] [address] [place] [address] 06/10/2024 Catrachito Bustillo Plan Of Treatment No Information Progress Notes * AFSHIN WHEELERDOB:1960 ([age] yo M)Acc No.[id number]:06/10/2024 Progress Notes Patient: AFSHIN HENRIQUEZ Provider: Michelle Bustillo MD :1960 A ge:63 Y S ex:Male Date:06/10/2024 Address:[address] [facility], [place], [place] Pcp:BORIS GRAY MD Subjective: * Chief Complaints: * 1 . Patient presents today for a screening colonoscopy. * Medical History: Objective: * Vitals: Assessment: Plan: * Treatment: * * The named appointment provid er may or may not be the originator of this progress note, and it is not deemed complete until electronically signed by the appointment provider. Sign off status: Pending * Provider: Michelle Bustillo MD Date: 0 06/10/2024 Generated for Hugh gore/Moriah/Alciraitting on: 08:01 AM EDT
--- OUTSIDE RECORDS SUMMARY | 2025-08-05 08:01 | XMS_ITS | Patient Health Record ---
Author Organization [facility] Address [address] [place] [address] Care Team Providers Care Manager Electronic Name Role Phone BORIS GRAY MD Primary Care Provider Catrachito Rose Unavailable [phone] Reason For Referral No Information Plan Of Treatment No Information Insurance Providers Payer Name Payer Address Payer Phone Subscriber Number Group Number Insured Name Patient Relationship to Insured Coverage Start Date Coverage End Date MEDICAID OF [facility] [address] [place] [id number] [id number] AFSHIN WHEELER Self - patient is the insured
--- OUTSIDE RECORDS SUMMARY | 2025-08-05 08:02 | XMS_ITS | Data Portability ---
Author Organization LORNA LYNCH MD [facility], Main Office Address [address] [place] [phone] Assessment No assessment recorded. Plan of Treatment Reminders Order Date Submit Date Provider Last Modified By Organization Details Last Modified Time Details Appointments B20 FOLLOW UP 2025 11:00A Aryan Mead MD Not available Not available Not available Lab CBC w/ diff [address] [place] [address] (Lab), [address] [place] [address], [id number], 04/20/2025 09:32:46 ALT (alanine aminotran sferase), serum or plasma [address] [place] [address] (Lab), [address] [place] [address], [id number], 04/20/2025 09:32:46 AST/SGOT (aspartat e aminotran sferase), serum or plasma [address] [place] [address] (Lab), [address] [place] [address], [id number], 04/20/2025 09:32:46 CT + NG DNA, PCR, unspecifi ed specimen [address] [place] [address] (Lab), [address] [place] [address], [id number], 04/20/2025 09:32:46 creatinin e w/ estimated GFR (eGFR), serum or plasma [address] [place] [address] (Lab), [address] [place] [address], [id number], 04/20/2025 09:32:46 HIV-1 RNA, quantitat maria e, PCR, serum or plasma [address] [place] [address] (Lab), [address] [place] [address], [id number], 04/20/2025 09:32:46 RPR (rapid plasma reagin), serum [address] [place] [address] (Lab), [address] [place] [address], [id number], 04/20/2025 09:32:46 T-cell regulator y subsets panel, blood [address] [place] [address] (Lab), [address] [place] [address], [id number], 04/20/2025 09:32:46 CBC w/ diff [address] [place] [address] (Lab), [address] [place] [address], [id number], 01/26/2025 12:24:49 ALT (alanine aminotran sferase), serum or plasma [address] [place] [address] (Lab), [address] [place] [address], [id number], 01/26/2025 12:24:49 AST/SGOT (aspartat e aminotran sferase), serum or plasma [address] [place] [address] (Lab), [address] [place] [address], [id number], 01/26/2025 12:24:49 CT + NG DNA, PCR, unspecifi ed specimen [address] [place] [address] (Lab), [address] [place] [address], [id number], 01/26/2025 12:24:49 creatinin e w/ estimated GFR (eGFR), serum or plasma [address] (Lab), [address] [place] [address], [id number], 01/26/2025 12:24:49 HIV-1 RNA, quantitat maria e, PCR, serum or plasma [address] (Lab), [address] [place] [address], [id number], 01/26/2025 12:24:49 RPR (rapid plasma reagin), serum [address] (Lab), [address] [place] [address], [id number], 01/26/2025 12:24:49 T-cell regulator y subsets panel, blood [address] (Lab), [address] [place] [address], [id number], 01/26/2025 12:24:49 hepatitis C RNA, quant, PCR, serum [address] (Lab), [address] [place] [address], [id number], 01/26/2025 12:24:49 CBC w/ diff [address] (Lab), [address] [place] [address], [id number], 10/23/2024 09:37:43 ALT (alanine aminotran sferase), serum or plasma [address] (Lab), [address] [place] [address], [address], 10/23/2024 09:37:44 AST/SGOT (aspartat e aminotran sferase), serum or plasma [address] (Lab), [address] [place] [address], [id number], 10/23/2024 09:37:44 CT + NG DNA, PCR, unspecifi ed specimen [address] (Lab), [address] [place] [address], [id number], 10/23/2024 09:37:44 creatinin e w/ estimated GFR (eGFR), serum or plasma [address] (Lab), [address] [place] [address], [id number], 10/23/2024 09:37:44 HIV-1 RNA, quantitat maria e, PCR, serum or plasma [address] (Lab), [address] [place] [address], 850[address], 10/23/2024 09:37:44 RPR (rapid plasma reagin), serum [address] (Lab), [address] [place] [address], [id number], 10/23/2024 09:37:44 T-cell regulator y subsets panel, blood [address] (Lab), [address] [place] [address], [id number], 10/23/2024 09:37:44 chlamydia + gonorrhea RNA, QL, unspecifi ed specimen 2023 024 [facility] (Lab), [address] [place] [address], [id number], 10/16/2024 10:39:23 CBC w/ diff [address] (Lab), [address] [place] [address], [id number], 07/31/2024 10:10:08 ALT (alanine aminotran sferase), serum or plasma [address] (Lab), [address] [place] [address], 805[address], 07/31/2024 10:10:08 AST/SGOT (aspartat e aminotran sferase), serum or plasma [address] (Lab), [address] [place] [address], [id number], 07/31/2024 10:10:09 CT + NG DNA, PCR, unspecifi ed specimen [address] (Lab), [address] [place] [address], [id number], 07/31/2024 10:10:09 creatinin e w/ estimated GFR (eGFR), serum or plasma [address] (Lab), [address] [place] [address], 46938, 07/31/2024 10:10:09 HIV-1 RNA, quantitat maria e, PCR, serum or plasma [address] (Lab), [address] [place] [address], 688[address], 07/31/2024 10:10:09 RPR (rapid plasma reagin), serum [address] [place] [address] (Lab), [address] [place] [address], [id number], 07/31/2024 10:10:09 T-cell regulator y subsets panel, blood [address] (Lab), [address] [place], [address], 07/31/2024 10:10:09 chlamydia + gonorrhea RNA, QL, unspecifi ed specimen 2023 024 [facility] (Lab), [address] [place] [address], [id number], 07/24/2024 10:53:08 chlamydia + gonorrhea RNA, QL, unspecifi ed specimen [address] (Lab), [address] [place] [address], [id number], 07/24/2024 13:12:27 Referral None recorded. Procedures None recorded. Surgeries None recorded. Imaging None recorded. Medication Orders Biktarvy 50 mg-200 mg-25 mg tablet 2024 025 [facility], [address] [place] [address], [id number], 07/20/2025 08:39:58 Bactrim DS 800 mg-160 mg tablet 2024 025 [facility], [address] [place], [place], [id number], 07/14/2025 08:22:30 Biktarvy 50 mg-200 mg-25 mg tablet 2024 025 [facility], [address], [place], [id number], 03/24/2025 09:07:03 Bactrim DS 800 mg-160 mg tablet 2024 025 [facility], [address] [place] [address], [id number], 03/17/2025 08:49:55 Biktarvy 50 mg-200 mg-25 mg tablet 2023 024 [facility], [address] [place] [address], [id number], 12/18/2024 08:25:50 Bactrim DS 800 mg-160 mg tablet 2023 024 [facility], [address] [place] [address], [id number], 01/13/2025 08:27:17 Biktarvy 50 mg-200 mg-25 mg tablet 2023 024 [facility], [address] [place] [address], [id number], 09/17/2024 09:41:55 Bactrim DS 800 mg-160 mg tablet 2023 024 [facility], [address] [place] [address], [id number], 10/09/2024 08:51:47 Patient TargetsNo targets recorded. Patient InstructionsNo instructions recorded. Reason for Referral None Reported. Results Created Date Observation Date Name Description Value Unit Range Abnormal Flag Note LastModifiedBy Organization Detail LastModifiedTime 07/24/2007/25/2024 CHLAM YDIA DNA SWAB chlamydia DNA swab NEGATI VE negati ve This speci men type has not been evalu ated for this metho d. Inter pret resul ts with cauti on. SOURC E = ORAL Not Available [facility] [address] [place], [address], 07/25/2024 10:49:47 07/24/20 24 07/25/2024 GC DNA SWAB GC DNA swab NEGATI VE negati ve This speci men type has not been evalu ated for this metho d. Inter pret resul ts with cauti on. SOURC E = ORAL Not Available [facility] [address] [place], [address], 07/25/2024 10:49:47 07/24/20 24 07/25/2024 GC DNA SWAB performing lab [facility] atorkye jaffe, trevor memlisa r [facility] [address] [facility] [place] [address] Medic al Dire don ghosh MD Not Available [facility] [address] [facility], [place], [address], 07/25/2024 10:49:47 Result Notes None recorded. Problems Name Problem SNOMED Code Status Onset Date Resolution Date Notes Provider Name and Address Organization Details Recorded Time Human immunodef iciency virus infection 06750599 Active 2013 Human immunodefi ciency virus [HIV] disease; snomeddesc ription: HIV seropositi vity; Report Immunity to Registry: Yes; Not Available [facility] 4 06:58:16 HIV seroposit ivity Active 2013 HIV seropositi vity; snomeddesc ription: HIV seropositi vity; Report Immunity to Registry: Yes; Not Available [facility] 4 06:58:17 Type B viral hepatitis 48338464 Active 2016 Type B viral hepatitis; snomeddesc ription: Type B viral hepatitis; Report Immunity to Registry: Yes; Notes: HBV core ab pos; s ag neg; s ab pos nondetcete d 2017; Not Available [facility] 4 06:58:16 Viral hepatitis B without hepatic coma 063871351 Active 2016 Unspecifie d viral hepatitis B without hepatic coma; snomeddesc ription: Type B viral hepatitis; Report Immunity to Registry: Yes; Notes: HBV core ab pos; s ag neg; s ab pos nondetcete d 2017; Not Available [facility] 4 06:58:16 Chlamydia l infection 612839952 Active 2017 Chlamydial infection; snomeddesc ription: Chlamydial infection; Report Immunity to Registry: Yes; Notes: pos urine 2017 tx Azithromyc in ; Chlamydia l infection, unspecifie d; snomeddesc ription: Chlamydial infection; Report Immunity to Registry: Yes; Notes: pos urine 2017 tx Azithromyc in ; Not Available [facility] 4 06:58:16 Herpesvir us infection 38961689 Active 2017 Herpesvira l infection, unspecifie d; snomeddesc ription: Herpes simplex; Report Immunity to Registry: Yes; Notes: HSV 1 pos; HSV 2 neg serology; Not Available [facility] 4 06:58:16 Herpes simplex 32700419 Active 2017 Herpes simplex; snomeddesc ription: Herpes simplex; Report Immunity to Registry: Yes; Notes: HSV 1 pos; HSV 2 neg serology; Not Available [facility] 4 06:58:17 Chronic hepatitis C 969754942 Active 2022 Chronic hepatitis C without mention of hepatic coma; snomeddesc ription: Chronic hepatitis C; Report Immunity to Registry: Yes; Notes: g2a/2c s/p tx peg/riba 1 s/p SVR nondetecte d 2017; 2021; Chronic hepatitis C; snomeddesc ription: Chronic hepatitis C; Report Immunity to Registry: Yes; Notes: g2a/2c s/p tx peg/riba 1 s/p SVR nondetecte d 2017; Fay Mead MD [address] [place] [address], [phone] , LORNA MEAD MD [facility] 4 09:51:15 Viral hepatitis C 56418481 Active 2023 Fay Mead MD [address] [place] [address], [phone] , LORNA MEAD MD [facility] 4 11:17:11 Problem Notes None recorded. Medical Equipment None Reported. Medications Name Sig Start Date Stop Date Status Note LastModified by Organization Details LastModified Time multivita min tablet Multiple Vitamins Quantity : 30; 3 refill(s ) 02/02 completed Frequenc y: qd; VACCINE_ IND: no; SU_FULL_ NAME: Fay pleitez; Not Available Not Available Not Available doxycycli ne hyclate 100 mg capsule TAKE 1 CAPSULE BY MOUTH TWICE DAILY FOR 7 DAYS active Not Available Not Available No t Available Pneumovax -23 25 mcg/0.5 mL injection solution - Quantity : 1; Duration : 30; 0 refill(s ) 03/04 completed Duration : 30; VACCINE_ IND: no; VACCINE_ NAME: pneumoco ccal polysacc haride PPV23; SU_FULL_ NAME: Fay pleitez; Not Available Not Available Not Available Iron (ferrous sulfate) 325 mg (65 mg iron) tablet 325 mg Quantity : 90; 3 refill(s ) 09/02 completed Frequenc y: tid; VACCINE_ IND: no; SU_FULL_ NAME: Fay pleitez; Not Available Not Available Not Available miconazol e nitrate 2 % topical cream APPLY TO THE AFFECTED AREA(S) BETWEEN TOES OF BOTH FEET TWICE DAILY 06/25 completed Duration : 14; VACCINE_ IND: no; Not Available Not Available Not Available ibuprofen 800 mg tablet 800 mg Quantity : 90; 3 refill(s ) 08/05 completed Frequenc y: tid; VACCINE_ IND: no; SU_FULL_ NAME: Fay pleitez; Not Available Not Available Not Available fluconazo le 200 mg tablet TAKE 1 TABLET BY MOUTH EVERY DAY UNTIL FINISHED active Not Available Not Available No t Available Neupogen 300 mcg/0.5 mL injection syringe 300 mcg/0.5 mL Quantity : ; Duration : 30; 0 refill(s ) 06/25 completed Duration : 30; VACCINE_ IND: yes; SU_FULL_ NAME: Fay Decker; VIS_DATE : 04:00:00 .0; Not Available Not Available Not Available polyvinyl alcohol 1.4 % eye drops INSTILL 2 DROPS IN EACH EYE THREE TIMES DAILY IN THE MORNING, AT NOON, AND AT BEDTIME NEEDED FOR DRY EYES. active Not Available Not Available No t Available Norvir Soft Gelatin 100 mg capsule 100 mg Quantity : 30; 3 refill(s ) 09/02 completed Frequenc y: qd; VACCINE_ IND: no; SU_FULL_ NAME: Fay pleitez; Not Available Not Available Not Available terbinafi ne HCl 250 mg tablet TAKE 1 TABLET BY MOUTH DAILY IN THE MORNING FOR 28 DAYS active Not Available Not Available No t Available hydrocort isone 1 % topical cream APPLY TOPICALL Y TWICE DAILY FOR 2 WEEKS active Not Available Not Available No t Available cyanocoba jeffery (vit B-12) 1,000 mcg/mL injection solution 1000 mcg/mL Quantity : 1; 3 refill(s ) 09/02 completed Frequenc y: q1mo; VACCINE_ IND: no; SU_FULL_ NAME: Fay Rangellubna pleitez; Not Available Not Available Not Available diphenhyd ramine 25 mg tablet TAKE 1 TABLET BY MOUTH THREE TIMES DAILY NEEDED FOR ITCHING active Not Available Not Available No t Available ibuprofen 400 mg tablet TAKE 1 TABLET BY MOUTH EVERY 8 HOURS NEEDED 12/04 completed Duration : 20; VACCINE_ IND: no; Not Available Not Available Not Available clotrimaz ole 1 % topical solution apply in affected kasia area bid x 14 days 09/13 completed Duration : 14; VACCINE_ IND: no; SU_FULL_ NAME: Fay Martlubna pleitez; Not Available Not Available Not Available folic acid 1 mg tablet 1 mg Quantity : 30; 3 refill(s ) 09/02 completed Frequenc y: qd; VACCINE_ IND: no; SU_FULL_ NAME: Fay Rangellubna pleitez; Not Available Not Available Not Available clotrimaz ole 1 % topical cream APPLY TO THE AFFECTED AREA(S) TWICE DAILY FOR FOURTEEN DAYS active Not Available Not Available No t Available amoxicill in 875 mg-potass ium clavulana te 125 mg tablet TAKE 1 TABLET BY MOUTH TWICE DAILY active Not Available Not Available No t Available Bactrim DS 800 mg-160 mg tablet Take 1 tablet every day by oral route for 30 days. 2024 active Not Available Not Available Not Avai lable Pneumovax -23 25 mcg/0.5 mL injection syringe - Quantity : ; 0 refill(s ) 2021 active VACCINE_ IND: yes; VACCINE_ NAME: pneumoco ccal polysacc haride PPV23; SU_FULL_ NAME: Karo Snell; VIS_DATE : 16:34:53 .0; Not Available Not Available Not Available azithromy geoffrey 500 mg tablet TAKE 2 TABLETS BY MOUTH ONCE A WEEK DIRECTED 12/04 completed Duration : 28; VACCINE_ IND: no; SU_FULL_ NAME: Fay Rangellubna pleitez; Not Available Not Available Not Available ribavirin 200 mg tablet 200 mg Quantity : 168.000; Duration : 28; 9 refill(s ) 09/02 completed Duration : 28; VACCINE_ IND: no; Not Available Not Available Not Available Testim 50 mg/5 gram (1 %) transderm al gel 50 mg/5 g Quantity : 300; 3 refill(s ) 02/05 completed Frequenc y: bid; VACCINE_ IND: no; SU_FULL_ NAME: Fay Heidi pleitez; Not Available Not Available Not Available Lexiva 700 mg tablet 700 mg Quantity : 120; 3 refill(s ) 02/08 completed Frequenc y: bid; VACCINE_ IND: no; SU_FULL_ NAME: Fay Heidi pleitez; Not Available Not Available Not Available Pegasys Convenien ce Pack 180 mcg/0.5 mL subcutane ous kit 180 mcg/0.5 mL Quantity : ; Duration : 30; 0 refill(s ) 09/02 completed Duration : 30; VACCINE_ IND: yes; SU_FULL_ NAME: Elijah Deckeria; VIS_DATE : 04:00:00 .0; Not Available Not Available Not Available Truvada 200 mg-300 mg tablet 200 mg-300 mg Quantity : 30; 3 refill(s ) 02/08 completed Frequenc y: qd; VACCINE_ IND: no; SU_FULL_ NAME: Fay Heidi pleitez; Not Available Not Available Not Available Prevnar 13 (PF) 0.5 mL intramusc ular syringe - Quantity : ; 0 refill(s ) 11/21 completed VACCINE_ IND: yes; VACCINE_ NAME: Pneumoco ccal conjugat e PCV 13; SU_FULL_ NAME: Fay pleitez; Not Available Not Available Not Available white petrolatu m 42 % topical ointment APPLY TOPICALL Y 2 OR 3 TIMES DAILY NEEDED DRY SKIN active Not Available Not Available No t Available Fluvirin 45 mcg (15 mcg x 3)/0.5 mL intramusc ular suspensio n trivalen t Quantity : ; 0 refill(s ) 11/21 completed VACCINE_ IND: yes; VACCINE_ NAME: Influenz a, seasonal , injectab le; SU_FULL_ NAME: Fay pleitez; Not Available Not Available Not Available Biktarvy 50 mg-200 mg-25 mg tablet Take 1 tablet every day by oral route for 30 days. 2024 active Not Available Not Available Not Avai lable Fluzone Quad (PF) 60 mcg (15 mcg x 4)/0.5 mL IM syringe PHARMACY ADMINIST ERED 2019 active Duration : 1; VACCINE_ IND: no; VACCINE_ NAME: influenz a, injectab le, quadriva lent, preserva tive free; Not Available Not Available Not Available Lubricati ng Tears 0.1 %-0.3 % eye drops INSTILL 2 DROPS IN EACH EYE THREE TIMES DAILY IN THE MORNING, AT NOON, AND AT BEDTIME NEEDED FOR DRY EYES. active Not Available Not Available No t Available Afluria Quad 60 mcg (15 mcg x 4)/0.5 mL intramusc ular susp. quadriva lent Quantity : ; 0 refill(s ) 2020 active VACCINE_ IND: yes; VACCINE_ NAME: influenz a, injectab le, quadriva lent; SU_FULL_ NAME: Fay pleitez; VIS_DATE : 05:00:00 .0; Not Available Not Available Not Available Vitals Date Recorded Body height Heart rate Respiratory rate Body temperature Body mass index (BMI) Body weight Systolic And Diastolic Provider Name and Address Organization Details Last Updated DateTime 5 154.94 cm 58 /min 12 /min 98.2 [degF] 33.4 kg/m2 10174.8 5 g 118/70 mm[Hg] Karen WHEELER 5 11:02:45 Date Recorded Body height Heart rate Body temperature Body mass index (BMI) Body weight Systolic And Diastolic Provider Name and Address Organization Details Last Updated DateTime 5 154.94 cm 53 /min 97.6 [degF] 33.4 kg/m2 07441.8 5 g 122/70 mm[Hg] Karen MEAD MD [facility] 5 12:09:28 Date Recorded Body height Heart rate Respiratory rate Body temperature Body mass index (BMI) Body weight Oxygen saturation Oxygen saturation in Arterial blood by Pulse oximetry Systolic And Diastolic Provider Name and Address Organization Details Last Updated DateTime 4 154.94 cm 65 /min 12 /min 97.9 [degF] 34 kg/m2 29703.6 3 g 98 % 98 % 120/60 mm[Hg] Karen MEAD MD [facility] 4 10:44:06 Date Recorded Body height Heart rate Body temperature Body mass index (BMI) Body weight Systolic And Diastolic Provider Name and Address Organization Details Last Updated DateTime 5 154.94 cm 65 /min 97.5 [degF] 33.1 kg/m2 41742.6 6 g 129/79 mm[Hg] Karo MEAD MD [facility] 5 10:29:54 Date Recorded Body height Body mass index (BMI) Body weight Respiratory rate Heart rate Body temperature Systolic And Diastolic Provider Name and Address Organization Details Last Updated DateTime 4 154.94 cm 34.6 kg/m2 16413.4 g 12 /min 51 /min 97.8 [degF] 118/70 mm[Hg] Karen MEAD MD [facility] 4 10:18:05 Social History None recorded. Functional Status None recorded. Mental Status None recorded. Family History Nothing Reported Notes:Other mental problems, Response Property: Yes; , Depression, Response Property: Yes; , Hypertension, Response Property: Yes; Medical History No medical history recorded. Immunizations Vaccine Type Date Status Note Provider Nam e and Address Organization Details Recorded Time Influenza, split virus, quadrivalent, preservative 1 completed Not Available [facility] 12/19/2023 06:54:37 Past Encounters Encounter ID Performer Location Encounter Start Date Encounter Closed Date Diagnosis/Indication Diagnosis SNOMED-CT Code Diagnosis ICD10 Code Diagnosis IMO Codes Diagnosis Note [id number] Fay Mead MD Main Office [address] [place] [address] 08/14/2023 09:44:20 08/15/2023 09:56:44 Human immunodeficiency virus infection 20049450 B20 HIV/AIDS Continue Biktarvy 1 tab po qd. compliance reviewed w daily dose to suppress HIV, keep viral controlled and prevent resistance and prevent viral transmissi on. pt aware of TAF free regimens, and 2 drug regimens. call with any concerns, side effects, new meds, OTC on Bactrim DS 1 tab po qd daily to prevent OI. refilled. labsflu vaccine, COVID and RSV vaccine recommende d pt aware of PreP availabili ty APretude reviewed; safe sex. condom use. U=U plan of care reviewed. Viral hepatitis C 090507 B19.20 g2a/2c s/p tx peg/riba 1 s/p SVR nondetecte d 2021HCV VL nondetcete d . no need to tx Type B vir al hepatitis 14892088 B19.10 HBV core ab pos; s ag neg; s ab pos nondetcete d 2017monito rHBV s ag ordered [id number] Fay Mead MD Main Office [address] [place] [address] 11/13/2023 09:27:40 11/13/2023 11:37:34 Human immunodeficiency virus infection 32022583 B20 HIV/AIDS Continue Biktarvy 1 tab po qd. compliance reviewed w daily dose to suppress HIV, keep viral controlled and prevent resistance and prevent viral transmissi on. pt aware of TAF free regimens, and 2 drug regimens. clinical trials reviewed.c all with any concerns, side effects, new meds, OTCon Bactrim DS 1 tab po qd daily to prevent OI. refilled.p t aware of PreP availabili ty, APretude reviewed; safe sex. condom use. [id number] vaccine recommende d.plan of care reviewed. Viral hepatitis C 962308 B19.20 g2a/2c s/p tx peg/riba 1 s/p SVR nondetecte d 2021H[place] [id number] Fay Mead MD Main Office [address] [place] [phone] 02/18/2024 09:44:22 02/18/2024 09:48:23 Human immunodeficiency virus infection 81376114 B20 HIV/AIDS Continue Biktarvy 1 tab po qd. compliance reviewed w daily dose to suppress HIV, keep viral controlled and prevent resistance and prevent viral transmissi on. pt aware of TAF free regimens, and 2 drug regimens. clinical trials reviewed. he will think about it.call with any concerns, side effects, new meds, OTCon Bactrim DS 1 tab po qd daily to prevent OI. refilled.p t aware of PreP availabili ty, APretude reviewed; safe sex. condom use. U=Uplan of care reviewed. [id number] Fay Mead MD Main Office [address] [place] [phone] 03/19/2024 11:47:56 03/19/2024 12:29:25 Human immunodeficiency virus infection 83746041 B20 HIV/AIDS Continue Biktarvy 1 tab po qd. compliance reviewed w daily dose to suppress HIV, keep viral controlled and prevent resistance and prevent viral transmissi on.on Bactrim DS 1 tab po qd daily to prevent OI. refilled.p t aware of PreP availabili ty, APretude reviewed; safe sex. condom use. U=UDOxyPEP reviewed.p freddy of care reviewed. [id number] Fay Mead MD Main Office [address] [place] [phone] 07/24/2024 10:24:39 07/24/2024 11:18:18 Human immunodeficiency virus infection 02879142 B20 HIV/AIDS Continue Biktarvy 1 tab po qd. compliance reviewed w daily dose to suppress HIV, keep viral controlled and prevent resistance and prevent viral transmissi on. pt aware of TAF free regimens, and 2 drug regimens. clinical trials reviewed.c all with any concerns, side effects, new meds, OTCon Bactrim DS 1 tab po qd daily to prevent OI. refilled.p t aware of PreP availabili ty, APretude reviewed; safe sex. condom use. U=U reviewedaw are of DoxyPEP availablit yflu and COVID19 vaccines recommende d; declinespl an of care reviewed. [id number] Fay Mead MD Main Office [address] [place] [address], [place] [address] 10/16/2024 10:04:58 10/16/2024 10:43:27 Human immunodeficiency virus infection 67707361 B20 HIV/AIDS Continue Biktarvy 1 tab po qd. compliance reviewed w daily dose to suppress HIV, keep viral controlled and prevent resistance and prevent viral transmissi on. pt aware of TAF free regimens, and 2 drug regimens. clinical trials reviewed.o n Bactrim DS 1 tab po qd daily to prevent OI. refilled.l abs orderedpt aware of PreP availabili tyU=U reviewedaw are of DoxyPEP availablit yflu and COVID19 vaccines prescribed ; pt [facility] too get [facility] at [facility] an of care reviewed. [id number] Fay Mead MD Main Office [address] [place] [address], [place] [phone] 01/14/2025 10:28:57 01/14/2025 11:18:46 Human immunodeficiency virus infection [id number] B20 HIV/AIDS Continue Biktarvy 1 tab po qd. compliance reviewed w daily dose to suppress HIV, keep viral controlled and prevent resistance and prevent viral transmissi on. pt aware of TAF free regimens, and 2 drug regimens. clinical trials reviewed.o n Bactrim DS 1 tab po qd daily to prevent OI. refilled.l abs orderedpt aware of PreP availabili tyU=U reviewedaw are of DoxyPEP availablit yprevnar vaccine recommende dplan of care reviewed. [id number] Fay Mead MD Main Office [address] [place] [address], [place] [phone] 04/13/2025 11:39:07 04/13/2025 12:38:11 Human immunodeficiency virus infection [id number] B20 HIV/AIDS Continue Biktarvy 1 tab po qd. compliance reviewed w daily dose to suppress HIV, keep viral controlled and prevent resistance and prevent viral transmissi on. pt aware of TAF free regimens, and 2 drug regimens. clinical trials reviewed.o n Bactrim DS 1 tab po qd daily to prevent OI. refilled.l abs orderedpt aware of PreP availabili tyU=U reviewedaw are of DoxyPEP availablit yprevnar vaccine recommende [id number] plan of care reviewed. [id number] Fay Mead MD Main Office [address] [facility], [place] [phone] 08/04/2025 10:01:53 08/04/2025 11:12:27 Human immunodeficiency virus infection [id number] B20 HIV/AIDS Continue Biktarvy 1 tab po qd. compliance reviewed w daily dose to suppress HIV, keep viral controlled and prevent resistance and prevent viral transmissi on. pt aware of TAF free regimens, and 2 drug regimens. clinical trials reviewed.o n Bactrim DS 1 tab po qd daily to prevent OI. refilled.l abs orderedpt aware of PreP availabili tyaware of DoxyPEP availablit yprevnar vaccine recommende [id number] plan of care reviewed. Health Concerns Section Related Observation LastModified by Organization Detai ls LastModified Time None Recorded Concern Status LastModified by Organization Details LastModified Time None Recorded Advance Directives Directive None Recorded Payers Insurance Date Sequence Insurance Name Policy Number Policy Manrique Covered Member ID Manrique Member ID Guarantor Name 08/01/2025 1 [place] [facility] Perez Ronda [id number] Perez Ronda Notes Date Note Type Note Provider Name and Address Organization Details Recorded Time 4 text/html ROS as noted in the HPI f/u HIVon Biktarvy 1 tab po qdtaking daily.feels wellreports compliancemissing ocassional dosesdenies substance usedenies ETOH usedenies sexually activityhas not been sick since he was last seenno recent labstaking Bactrim as well for oI prophylaxis due to low CD4 01/2024 HCV VL nondetectede; HIV vL nonteceted; Go7=787 10/2013 HIV VL =23; HCV VLnondetceted; CBC ok; liver/kidney unremarkable; no syphilis; Cd4 not done at lab 07/2023 HIV=50; QQ=945; ALT/AST wnl; no HBV. no STI's; RPR NR; GC/chlamydia neg. no new meds. no OTC; med list reviewedno fever. no n/v/d. no chills. no rash. no weight loss Fay Mead MD [address] [place] [address], [phone], [place] MEAD MD [facility] 07/24/2024 10:52:17 4 text/html ROS as noted in the HPI f/u HIVon Biktarvy 1 tab po qdtaking daily.feels wellhas gained some weightvery active in the community; sabianist activitiesreports compliancemissing ocassional dosesdenies substance usedenies ETOH usedenies sexually activityhas not been sick since he was last seenno hospitalizationsabs reviewed with pt.taking Bactrim as well for oI prophylaxis due to low [id number] LN9=838 HIV VL nondtected01/2024 HCV VL nondetectede; HIV vL nonteceted; Kh6=8697/2014 HIV VL =23; HCV VLnondetceted; CBC ok; liver/kidney unremarkable; no syphilis; Cd4 not done at labno fever. no n/v/d. no chills. no rash. no weight loss Fay Mead MD [address] [place] [address], [phone], [place] MEAD MD [facility] 10/16/2024 14:26:49 5 text/html f/u HIVon Biktarvy 1 tab po qdtaking daily.feels wellhappy with medicationno side effectsreports compliancemissing occasional doses; at least once that he remembersdenies substance usedenies ETOHno hospitalizationhas not been sick since he was last seenlabs reviewed with pt.taking Bactrim as well for oI prophylaxis due to low CD409/2024 HIV vL nondetcetdable; QY8=543; ALT/ATS wnl; eGFR; ALt/AST.06/2024 RX2=606 HIV VL nondtected01/2024 HCV VL nondetectede; HIV vL nonteceted; Dn9=6646/2013 HIV VL =23; HCV VLnondetceted; CBC ok; liver/kidney unremarkable; no syphilis; Cd4 not done at lab Fay Mead MD [address] [place] [address], [phone], [place] MEAD MD [facility] 01/14/2025 12:57:32 5 text/html f/u HIVon Biktarvy 1 tab po qdtaking daily.may have missed a dose since he was last seenfeels wellhappy with medicationno side effectsdenies substance usedenies ETOHhas not been sick since he was last seenlabs reviewed with pt.walking more.taking Bactrim as well for oI prophylaxis due to low CD412/2024 HIV VL Nondetcetedd; UZ7=033; ALT/AST wnl; eGFR wnl111/2023 HIV vL nondetcetdable; LZ3=687; ALT/ATS wnl; eGFR; ALt/AST.06/2024 LC3=992 HIV VL nondtected01/2024 HCV VL nondetectede; HIV vL nonteceted; Bp4=2348/2014 HIV VL =23; HCV VLnondetceted; CBC ok; liver/kidney unremarkable; no syphilis; Cd4 not done at lab Fay Mead MD [address] [place] [address], [phone], [place] MEAD MD [facility] 04/13/2025 12:35:41 5 text/html ROS as noted in the HPI f/u HIVon Biktarvy 1 tab po qdtaking daily.feels wellhappy with medicationno side effectsdenies substance usedenies ETOHpractices Gods work dailyhas not been sick since he was last seenlabs reviewed with pt.walking more.taking Bactrim as well for oI prophylaxis due to low CD4 03/2025- HIV-RNA non detected, CD4- 158, CD4%- HIV VL Nondetcetedd; DQ5=929; ALT/AST wnl; eGFR wnl111/2023 HIV vL nondetcetdable; WO2=372; ALT/ATS wnl; eGFR; ALt/AST.06/2024 VN6=711 HIV VL nondtected01/2024 HCV VL nondetectede; HIV vL nonteceted; Nr2=8447/2014 HIV VL =23; HCV VLnondetceted; CBC ok; liver/kidney unremarkable; no syphilis; Cd4 not done at lab Not Available Not Available Not Available
[2025-08-05 09:07] LABS: Alanine Aminotransferase 28 U/L (0-40); Aspartate Amino Transferase 32 U/L (5-37); Estimated Glomerular Filt Rate > 60
[2025-08-05 09:32] LABS: Syphilis Screen Nonreactive (Nonreactive)
[2025-08-07 16:43] LABS: HIV RNA PCR Qn Copies 110 copies/mL (NOT DETECTED); HIV RNA PCR Qn Log Copies 2.04 (NOT DETECTED)
[2025-08-10 16:14] LABS: Absolute CD3 Count 1294 cells/uL (840-3060); Absolute CD8 Count 1100 cells/uL (180-1170); Percent CD3 Cells 87 % (57-85); Percent CD8 Cells 74 % (12-42)
== END 2025-08-05 07:56 | disposition home or self-care (01) ==
LOC: HO.LAB 07:55
PROVIDERS: PCP Registered Nurse; Visit Provider Internal Medicine Infectious Disease
DX: Z01.84 Encounter for antibody response examination (principal); B20 Human immunodeficiency virus [HIV] disease
CPT/HCPCS: 36415; 82565; 84450; 84460; 86359; 86360; 86780; 87536